=== PATIENT | female | born 1940 | race Caucasian/White ===

== ENCOUNTER 2016-11-19 10:07 | Inpatient (IN) ==
--- NOTE | 2016-11-19 10:17 | Emergency Department Note ---
Disposition Clinical Impression: Weakness, Elevated troponin A-fib Qualifiers: Atrial fibrillation type: unspecified Qualified Code(s): I48.91 - Unspecified atrial fibrillation Disposition: Admitted As Inpatient Condition: Fair Referrals: NO,PCP [Primary Care Provider] - Forms: ED Satisfaction Letter SOB HPI - General Chief Complaint: ED Shortness of Breath/Dyspnea Stated Complaint: SOB Time Seen by Provider: 11/19/16 10:11 Source: patient, EMS Mode of arrival: ambulatory Limitations: no limitations Nursing Notes Reviewed: Yes Vital Signs Reviewed: Yes - History of Present Illness 76 year old female history of hypertension, A. fib presents for evaluation via EMS for generalized weakness and shortness of breath. Patient states she has been feeling short of breath over the past week. No fevers. No cough. No significant pulmonary disease. No history of smoking. Patient states that she has also been having diffuse generalized pain. Pain in her chest as well as her legs. EMS report that she was unable to ambulate with assistance. Patient notes that she has had lower ext swelling which is unchanged from her baseline. Patient states that she has pain in her knees. States that she does not ambulate at baseline due to her swelling in her lower legs. Reports that she does live alone and has a son that lives near. Pt Subjective Complaint: shortness of breath Onset (ago): day(s) - Related Data Home Medications Medication Instructions Recorded Confirmed Gabapentin [Neurontin] 300 mg PO HS 03/23/16 06/26/16 Multivitamin [Multi-Day Vitamins] 1 each PO DAILY 03/23/16 06/26/16 Previous Rx's Medication Instructions Recorded TraMADol [Ultram] 50 mg PO Q6HR PRN #30 10/20/15 Atorvastatin [Lipitor] 40 mg PO HS #30 tablet 03/27/16 Dabigatran [Pradaxa] 75 mg PO BID #60 capsule 03/27/16 Albuterol Neb [Proventil Neb] 2.5 mg IH [id number] PRN 14 Days 07/03/16 Diltiazem CD (24hr) [Cardizem CD] 120 mg PO DAILY #30 cap.er.24h 07/03/16 Docusate [Colace] 100 mg PO BID #20 capsule 07/03/16 Furosemide [Lasix] 60 mg PO DAILY #30 tablet 07/03/16 Metoprolol [Lopressor] 50 mg PO BID #60 tablet 07/03/16 Allergies Allergy/AdvReac Type Severity Reaction Status Date / Time No Known Allergies Allergy Verified 11/19/16 10:08 All systems ED: reviewed and negative except as stated. Constitutional: Reports: as per HPI. Denies: fever Eyes: Reports: as per HPI ENT ED: Reports: as per HPI Cardiovascular: Reports: as per HPI, chest pain Respiratory: Reports: as per HPI, dyspnea Gastrointestinal: Reports: as per HPI, nausea Genitourinary: Reports: as per HPI Musculoskeletal: Reports: as per HPI Integumentary: Reports: as per HPI Neurological: Reports: as per HPI Psychiatric: Reports: as per HPI Endocrine: Reports: as per HPI Past Medical History - Past Medical History Medical history: Reports: atrial fibrillation, cardiomyopathy, CHF, DVT, hyperlipidemia, hypertension, venous stasis, valvular heart disease Surgical history: Reports: hysterectomy Psychiatric history: Reports: anxiety [employer] history: Reports: non-contributory - Social History Smoking Status: Never smoker Smokeless Tobacco Status: No Alcohol use: Reports: none Drug use: Reports: none Physical Exam - General Limitations: no limitations General appearance: alert - Head Head exam: atraumatic, normocephalic, normal inspection - Eye Eye exam: Present: normal appearance, PERRL, EOMI - ENT ENT exam: normal exam, mucous membranes moist - Neck Neck exam: Present: normal inspection, trachea midline - Chest Chest inspection: Present: normal inspection, symmetric chest wall rise - Respiratory Respiratory exam: Present: normal lung sounds bilaterally. Absent: respiratory distress - Cardiovascular Cardiovascular exam: Present: regular rate, normal rhythm - Abdominal Exam Abdominal exam: Present: soft, Non-Tender. Absent: guarding, rebound - Extremities Exam Extremities exam: Present: normal inspection, pedal edema (2-3 + pitting edema b /l with chronic overlying erythemic changes.) - Expanded Lower Extremity Exam Hip/Pelvis exam: Present: normal inspection Upper leg exam: Present: normal inspection - Back Exam Back exam: Present: normal inspection - Skin Skin exam: Present: warm, dry, intact, normal color Course Course Narrative: Patient seen and examined upon EMS arrival. EMS states the patient's living conditions are poor. There is no fluid in her house. Patient is not able to perform her activities of daily living. Patient notes that she has not been taking her medications over the past week. Has unable to get them filled. Patient's lungs are unremarkable. Patient will get chest x-ray, cardiac evaluation, basic lab work including a urine. Symptomatic treatment. Patient will likely need admission. - Reevaluation(s) Reevaluation #1: Patient seen and examined. Patient's heart rate has improved from initial evaluation. Patient notes pain in her knees. Time: 11:27 Vital Signs Temperature 98.1 F 11/19/16 10:09 Pulse Rate 127 11/19/16 10:09 Respiratory Rate 20 11/19/16 10:09 Blood Pressure 143/114 11/19/16 10:09 O2 Sat by Pulse Oximetry 93 11/19/16 10:09 Temperature 98.1 F 11/19/16 10:09 Pulse Rate 125 11/19/16 11:26 Respiratory Rate 20 11/19/16 11:26 Blood Pressure 146/111 11/19/16 11:26 O2 Sat by Pulse Oximetry 94 11/19/16 11:26 Oxygen Delivery Oxygen Delivery Nasal Cannula Shortness of Breath/Dyspnea - [facility] Narrative Medical decision making narrative: 76-year-old female presents from home for concerns of weakness, shortness of breath, pain. Patient states he has pain everywhere it is predominantly in her knees. Patient states that she has not been able to refill her medications. States that she has soreness of breath and weakness. Patient does not have a smoking or pulmonary history. Patient does have a cardiac history with chronic A. fib on Pradaxa. Upon arrival the patient was not hypoxic. The patient had pain in her knees no abdominal pain. Patient was treated symptomatically with Zofran and morphine. Patient's heart rate fluctuated with her A. fib into the 120s and 30s. Patient's blood pressure stable. Patient typically takes Cardizem as well as metoprolol. Patient has not been able to take her medications at home. Concern that the patient has not been able to care for herself at home. EMS reported she has poor living conditions and was not able to ambulate without assistance. Patient states that she has chronic lower leg swelling which is unchanged from her baseline. Patient's lab work reveals elevated troponin which is similar to prior evaluations. Patient's denying any current chest pain. Patient did receive an aspirin. Patient also received IV fluids as well as IV Lopressor. Patient will likely need placement and PT/OT evaluation. - Lab Data Lab results reviewed: Yes I reviewed the patient's lab results. Result diagrams: 11/19/16 10:50 11/19/16 10:50 Lab Results 11/19/16 11/19/16 11/19/16 Range/Units 10:50 10:50 10:50 WBC 6.2 (4.3-11.1) K/mcL RBC 3.60 L (3.82-4.97) M/mcL Hgb 11.9 (11.5-15.4) g/dL Hct 36.8 (35.3-44.9) % MCV 102.2 H (83.0-100.0) fL MCH 33.1 (28.0-33.3) pg MCHC 32.3 (31.6-35.5) g/dL RDW 15.0 H (11.5-14.5) % Plt Count 163 (140-400) K/mcL MPV 10.4 (9.4-12.4) fL Immature Gran % 0.3 (0-4) % Seg Neutrophils % 70.3 % Lymphocytes % 15.2 % Monocytes % 10.8 % Eosinophils % 2.9 % Basophils % 0.5 % Neutrophils # 4.3 (1.6-8.9) K/mcL Lymphocytes # 0.9 (0.6-4.6) K/mcL Monocytes # 0.7 (0.0-1.3) K/mcL Eosinophils # 0.2 (0.0-0.6) K/mcL Basophils # 0.0 (0.0-0.2) K/mcL PT 14.1 H (9.4-12.1) Seconds INR 1.3 Sodium 144 (136-145) mEq/L Potassium 3.1 L (3.5-4.5) mEq/L Chloride 112 H (98-109) mEq/L Carbon Dioxide 25 (19-29) mEq/L BUN 16 (7-20) mg/dL Creatinine 0.80 (0.57-1.11) mg/dL Est GFR ( Amer) > 60 (> 60) Est GFR (Non-Af Amer) > 60 (> 60) BUN/Creatinine Ratio 20 (6-26) Glucose 107 H (70-99) mg/dL Calculated Osmolality 300 (280-300) Calcium 8.7 (8.6-10.8) mg/dL Total Bilirubin 1.4 H (0.2-1.2) mg/dL Direct Bilirubin 0.6 H (0.0-0.5) mg/dL Indirect Bilirubin 0.8 (0.0-1.2) mg/dL AST 23 (5-34) Units/L ALT 18 (0-55) Units/L Alkaline Phosphatase 62 (38-126) Units/L Troponin I (0-0.03) ng/mL B-Natriuretic Peptide (0-100) pg/mL Serum Total Protein 6.4 (6.0-8.3) g/dL Albumin 3.1 L (3.5-5.0) g/dL Globulin 3.3 (2.4-3.5) g/dL Albumin/Globulin Ratio 0.9 L (1.1-2.2) Urine Color (Yellow) Urine Clarity (Clear) Urine pH (5.0-8.0) pH Units Ur Specific [place] (1.010-1.025) Urine Protein (Neg-Trace) mg/dL Urine Glucose (UA) (Normal) mg/dL Urine Ketones (Negative) mg/dL Urine Blood (Negative) Urine Nitrite (Negative) Urine Bilirubin (Negative) Urine Urobilinogen (Normal) mg/dL Ur Leukocyte Esterase (Negative) Urine Microscopic RBC (0-3) per hpf Urine Microscopic WBC (0-3) per hpf Ur Squamous Epith Cells (None-Few) per lpf Urine Bacteria (None-Few) per hpf Hyaline Casts (None-Few) per lpf 11/19/16 11/19/16 11/19/16 Range/Units 10:50 10:50 11:35 WBC (4.3-11.1) K/mcL RBC (3.82-4.97) M/mcL Hgb (11.5-15.4) g/dL Hct (35.3-44.9) % MCV (83.0-100.0) fL MCH (28.0-33.3) pg MCHC (31.6-35.5) g/dL RDW (11.5-14.5) % Plt Count (140-400) K/mcL MPV (9.4-12.4) fL Immature Gran % (0-4) % Seg Neutrophils % % Lymphocytes % % Monocytes % % Eosinophils % % Basophils % % Neutrophils # (1.6-8.9) K/mcL Lymphocytes # (0.6-4.6) K/mcL Monocytes # (0.0-1.3) K/mcL Eosinophils # (0.0-0.6) K/mcL Basophils # (0.0-0.2) K/mcL PT (9.4-12.1) Seconds INR Sodium (136-145) mEq/L Potassium (3.5-4.5) mEq/L Chloride (98-109) mEq/L Carbon Dioxide (19-29) mEq/L BUN (7-20) mg/dL Creatinine (0.57-1.11) mg/dL Est GFR ( Amer) (> 60) Est GFR (Non-Af Amer) (> 60) BUN/Creatinine Ratio (6-26) Glucose (70-99) mg/dL Calculated Osmolality (280-300) Calcium (8.6-10.8) mg/dL Total Bilirubin (0.2-1.2) mg/dL Direct Bilirubin (0.0-0.5) mg/dL Indirect Bilirubin (0.0-1.2) mg/dL AST (5-34) Units/L ALT (0-55) Units/L Alkaline Phosphatase (38-126) Units/L Troponin I 0.06 H* (0-0.03) ng/mL B-Natriuretic Peptide 350 H (0-100) pg/mL Serum Total Protein (6.0-8.3) g/dL Albumin (3.5-5.0) g/dL Globulin (2.4-3.5) g/dL Albumin/Globulin Ratio (1.1-2.2) Urine Color Dark Yellow (Yellow) Urine Clarity Cloudy A (Clear) Urine pH 5.5 (5.0-8.0) pH Units Ur Specific [place] 1.029 H (1.010-1.025) Urine Protein 100 H (Neg-Trace) mg/dL Urine Glucose (UA) Normal (Normal) mg/dL Urine Ketones Negative (Negative) mg/dL Urine Blood Negative (Negative) Urine Nitrite Negative (Negative) Urine Bilirubin Small H (Negative) Urine Urobilinogen Normal (Normal) mg/dL Ur Leukocyte Esterase Negative (Negative) Urine Microscopic RBC 0-3 (0-3) per hpf Urine Microscopic WBC 0-3 (0-3) per hpf Ur Squamous Epith Cells Many H (None-Few) per lpf Urine Bacteria None Seen (None-Few) per hpf Hyaline Casts Few (None-Few) per lpf - Radiology Data Radiology results reviewed: Yes I reviewed the patient's radiology results. Chest X-Ray 11/19/16 10:14 IMPRESSION: Mild bibasilar airspace disease. Small left pleural effusion versus scarring. D/ / Price Anderson MD / Price Anderson MD Interpreting Provider: Price Anderson MD - EKG Data EKG attestation: Yes I reviewed and interpreted this EKG. Rate: Reports: tachycardia Rhythm: Reports: A.Fib [place]/QRS: Reports: normal Q waves: Reports: v1 T wave inversions noted in: Reports: v5, v6 Interpretation: Reports: no acute changes, unchanged when compared to prior tracing (date) (06/2016), nonspecific ST-T wave changes S.B.A.R. - S.B.A.R. Situation: Demographics Background: Presenting Complaint Assessment: Vital Signs, Course and respsone to treatment, Patient/Family Expectation Recommendation: Barrier(s) to disposition, Recommendation based on pending studies, treatments, or consults S.B.A.R. Report Given to: Dr. Hebert S.B.AByronRByron Repor Time: 12:41 Attestation Statement - Attestation Attestation: I examined this patient and my medical decision-making was reviewed with the [employer]/PA/Advanced Practice Nurse/Resident Physician. I agree with the documented findings, disposition and treatment plan as described except to the extent set forth below.
[2016-11-19] MEDS ORDERED: 0.9 % Sodium Chloride 500 ML IVC ONE (11:04)
[2016-11-19 11:15] LABS: Basophils % 0.5 %; Eosinophils # 0.2 K/mcL (0.0-0.6); Eosinophils % 2.9 %; Hematocrit 36.8 % (35.3-44.9); Hemoglobin 11.9 g/dL (11.5-15.4); Immature Granulocytes % 0.3 % (0-4); Lymphocytes # 0.9 K/mcL (0.6-4.6); Lymphocytes % 15.2 %; Mean Corpuscular HGB Conc 32.3 g/dL (31.6-35.5); Mean Corpuscular Hemoglobin 33.1 pg (28.0-33.3); Mean Corpuscular Volume 102.2 fL (83.0-100.0); Mean Platelet Volume 10.4 fL (9.4-12.4); Monocytes # 0.7 K/mcL (0.0-1.3); Monocytes % 10.8 %; Neutrophils # 4.3 K/mcL (1.6-8.9); Platelet Count 163 K/mcL (140-400); Segmented Neutrophils % 70.3 %
[2016-11-19 11:20] LABS: INR 1.3; Prothrombin Time 14.1 Seconds (9.4-12.1)
[2016-11-19] MEDS ORDERED: Ondansetron 4 MG/2 ML VIAL IVP ONE (11:25)
[2016-11-19] MEDS ORDERED: *HR* Morphine 2 MG/ML SYRINGE IVP ONE (11:25)
[2016-11-19 11:29] LABS: Alanine Aminotransferase 18 Units/L (0-55); Albumin 3.1 g/dL (3.5-5.0); Albumin/Globulin Ratio 0.9 (1.1-2.2); Alkaline Phosphatase 62 Units/L (38-126); Aspartate Amino Transferase 23 Units/L (5-34); BUN/Creatinine Ratio 20 (6-26); Bilirubin,Direct 0.6 mg/dL (0.0-0.5); Bilirubin,Indirect 0.8 mg/dL (0.0-1.2); Bilirubin,Total 1.4 mg/dL (0.2-1.2); Blood Urea Nitrogen 16 mg/dL (7-20); Calcium 8.7 mg/dL (8.6-10.8); Carbon Dioxide 25 mEq/L (19-29); Chloride 112 mEq/L (98-109); Globulin 3.3 g/dL (2.4-3.5); Glucose 107 mg/dL (70-99); Osmolality,Calculated 300 (280-300); Potassium 3.1 mEq/L (3.5-4.5); Sodium 144 mEq/L (136-145); Total Protein 6.4 g/dL (6.0-8.3); eGFR For African Americans > 60 (> 60); eGFR For Non-African Americans > 60 (> 60)
[2016-11-19 12:12] LABS: Bilirubin,Urine Small (Negative); Blood,Urine Negative (Negative); Clarity,Urine Cloudy (Clear); Color,Urine Dark Yellow (Yellow); Glucose,Urine (UA) Normal (Normal); Ketones,Urine Negative (Negative); Leukocyte Esterase,Urine Negative (Negative); Nitrite,Urine Negative (Negative); PH,Urine 5.5 pH Units (5.0-8.0); Protein,Urine 100 mg/dL (Neg-Trace); Specific Gravity,Urine 1.029 (1.010-1.025); Urobilinogen,Urine Normal (Normal)
[2016-11-19 12:14] LABS: Bacteria,Urine None Seen per hpf (None-Few); Hyaline Casts,Urine Few per lpf (None-Few); RBC,Urine 0-3 per hpf (0-3); Squamous Epithelial Cell,Urine Many per lpf (None-Few); WBC,Urine 0-3 per hpf (0-3)
[2016-11-19] MEDS ORDERED: Aspirin 325 MG TABLET PO ONE (12:25)
[2016-11-19] MEDS ORDERED: *HR* Metoprolol 5 MG/5 ML VIAL IVP ONE (12:32)
[2016-11-19 12:50] LABS: Magnesium 1.6 mg/dL (1.6-2.6)
[2016-11-19] MEDS ORDERED: Naloxone 0.4 MG/ML INJ IVP PRN (13:47)
--- NOTE | 2016-11-19 13:47 | Internal Med History&Physical ---
Date of Encounter: 11/19/16 Time of Encounter: 13:46 Internal Medicine - H&P: HPI Chief complaint: generalized weakness Admitted From: Home Plans for Post Hospital Care: Home History of present illness: Ms. Cordova is a 76 year old female history of hypertension, A. fib presents for evaluation via EMS for generalized weakness and shortness of breath. Patient states she has been feeling short of breath over the past week. No fevers. No cough. No significant pulmonary disease. No history of smoking. Patient states that she has also been having diffuse generalized pain. Pain in her chest as well as her legs. EMS report that she was unable to ambulate with assistance. Patient notes that she has had lower ext swelling which is unchanged from her baseline. Patient states that she has pain in her knees. States that she does not ambulate at baseline due to her swelling in her lower legs. Reports that she does live alone and has a son that lives near. Past Med Surg Social Fam HX - Past Medical History Medical history: atrial fibrillation, cardiomyopathy, CHF, DVT, hyperlipidemia, hypertension, venous stasis, valvular heart disease Psychiatric history: anxiety - Past Surgical History Surgical History: hysterectomy - Social History Smoking Status: Never smoker Smokeless Tobacco Status: No Alcohol use: none Drug use: none - Family History Father Living Status: Hx Family Cardiac Disorders: Yes Mother Living Status: Hx Family Cardiac Disorders: Yes Internal Medicine - H&P: Meds TraMADol [Ultram] 50 mg PO Q6HR PRN #30 10/20/15 [Rx] Gabapentin [Neurontin] 300 mg PO HS 03/23/16 [History] Multivitamin [Multi-Day Vitamins] 1 each PO DAILY 03/23/16 [History] Atorvastatin [Lipitor] 40 mg PO HS #30 tablet 03/27/16 [Rx] Dabigatran [Pradaxa] 75 mg PO BID #60 capsule 03/27/16 [Rx] Albuterol Neb [Proventil Neb] 2.5 mg IH [id number] PRN 14 Days 07/03/16 [Rx] Diltiazem CD (24hr) [Cardizem CD] 120 mg PO DAILY #30 cap.er.24h 07/03/16 [Rx] Docusate [Colace] 100 mg PO BID #20 capsule 07/03/16 [Rx] Furosemide [Lasix] 60 mg PO DAILY #30 tablet 07/03/16 [Rx] Metoprolol [Lopressor] 50 mg PO BID #60 tablet 07/03/16 [Rx] Allergies No Known Allergies Allergy (Verified 11/19/16 10:08) All Systems PM: A 10-system review of systems was performed and is negative for pertinent findings except as documented above in the HPI. - Constitutional Vitals: Temp Pulse Resp BP Pulse Ox 98.1 F 128 18 142/109 99 11/19/16 10:09 11/19/16 12:43 11/19/16 13:30 11/19/16 13:30 11/19/16 12:43 General appearance: Present: A&O X 3, no acute distress Internal Med - H&P Results - Labs CBC & Chem 7: 11/19/16 10:50 11/19/16 10:50
--- NOTE | 2016-11-19 14:06 | Internal Med History&Physical ---
Date of Encounter: 11/19/16 Time of Encounter: 14:30 Assessment and Plan (1) Acute exacerbation of congestive heart failure Current visit: Yes Status: Acute Patient appears to be having an acute episode of congestive heart failure. Worsening pedal edema with shortness of breath or orthopnea and dyspnea on exertion. We will treat with IV Lasix. Monitor with telemetry. Trend troponins. Slight troponin elevation likely related to demand ischemia. Monitor vital signs closely. Monitor blood pressure closely. Daily weights. Input and output measurement. Most recent echocardiogram done in March 2016 showed EF of 45-50% with indeterminate diastolic function and moderate pulmonary hypertension. Patient has not been taking her medications appropriately. Will repeat echocardiogram. Qualifiers: Congestive heart failure type: systolic Qualified Code(s): I50.23 - Acute on chronic systolic (congestive) heart failure (2) A-fib Current visit: Yes Status: Acute Patient presented with A. fib with rapid ventricular response. This has since improved. Heart rate is now better controlled. Will resume home medications. Monitor heart rate to telemetry. On anticoagulation with pradaxa Qualifiers: Atrial fibrillation type: chronic Qualified Code(s): I48.2 - Chronic atrial fibrillation (3) Peripheral edema Current visit: No Status: Acute Due to congestive heart failure/venous stasis/right heart failure. We will treat with IV Lasix. (4) S/P aortic valve repair Current visit: Yes Status: Chronic (5) Physical deconditioning Current visit: Yes Status: Acute Will consult social media intern, PTOT. Patient may benefit from placement to skilled rehabilitation. Internal Medicine - H&P: HPI Chief complaint: Generalized weakness, body aches Admitted From: Emergency Dept Plans for Post Hospital Care: Transfer [facility] History of present illness: Ms. Cordova is a 76 year old female patient with history of atrial fibrillation , cardiomyopathy, congestive heart failure, the pain thrombosis, hyperlipidemia and hypertension presented to the ER with complaints of generalized weakness, generalized body aches. The patient states that she has not been able to take her medications for at least a week as she did not have the money to get them filled. She denies any chest pain. She does have shortness of breath with minimal exertion and some orthopnea. No PND. She has chronic pedal edema which seems to be worse. She lives alone at home. Reviewing the ED records appears that the patient has not been eating much for at least a week and failing to thrive at home. She has not been able to perform her activities of daily living and according to EMS records, her home living condition was poor. Patient currently denies any palpitations. Past Med Surg Social Fam HX - Past Medical History Attestation: Yes The following information was validated with the patient. Source: patient, old records reviewed Medical history: atrial fibrillation, cardiomyopathy, CHF, DVT, hyperlipidemia, hypertension, venous stasis, valvular heart disease Psychiatric history: anxiety - Past Surgical History Surgical History: hysterectomy - Social History Smoking Status: Never smoker Smokeless Tobacco Status: No Alcohol use: none Drug use: none - Family History Father Living Status: Hx Family Cardiac Disorders: Yes Mother Living Status: Hx Family Cardiac Disorders: Yes Internal Medicine - H&P: Meds TraMADol [Ultram] 50 mg PO Q6HR PRN #30 10/20/15 [Rx] Gabapentin [Neurontin] 300 mg PO HS 03/23/16 [History] Multivitamin [Multi-Day Vitamins] 1 each PO DAILY 03/23/16 [History] Atorvastatin [Lipitor] 40 mg PO HS #30 tablet 03/27/16 [Rx] Dabigatran [Pradaxa] 75 mg PO BID #60 capsule 03/27/16 [Rx] Albuterol Neb [Proventil Neb] 2.5 mg IH [id number] PRN 14 Days 07/03/16 [Rx] Diltiazem CD (24hr) [Cardizem CD] 120 mg PO DAILY #30 cap.er.24h 07/03/16 [Rx] Docusate [Colace] 100 mg PO BID #20 capsule 07/03/16 [Rx] Furosemide [Lasix] 60 mg PO DAILY #30 tablet 07/03/16 [Rx] Metoprolol [Lopressor] 50 mg PO BID #60 tablet 07/03/16 [Rx] Allergies No Known Allergies Allergy (Verified 11/19/16 10:08) All Systems PM: A 10-system review of systems was performed and is negative for pertinent findings except as documented above in the HPI. - Constitutional Constitutional: fatigue, malaise, no chills, no fever(s), no night sweats - EENT Eyes: no change in vision, no discharge, no pain, no photophobia Ears: no ear discharge, no ear pain, no tinnitus Nose, mouth and throat: no dysphagia, no nasal discharge, no neck pain, no sore throat - Cardiovascular Cardiovascular ROS IM: dyspnea, dyspnea on exertion, edema, orthopnea, no chest pain, no diaphoresis, no lightheadedness, no palpitations, no syncope - Respiratory Respiratory: no cough, no dyspnea, no wheezing, no excessive phlegm production - Gastrointestinal Gastrointestinal: no abdominal pain, no diarrhea, no hematemesis, no hematochezia, no melena, no nausea, no vomiting - Genitourinary Genitourinary: no change in urinary stream, no dysuria, no flank pain, no hematuria - Musculoskeletal Musculoskeletal ROS IM: no numbness, no tingling - Integumentary Integumentary IM: no rash, no unusual bruising - Neurological Neurological ROS: no confusion, no convulsions, no focal weakness, no numbness, no tingling, no tremor(s) - Hematologic/Lymphatic Hematologic/Lymphatic: no easy bruising - Constitutional Vitals: Temp Pulse Resp BP Pulse Ox 98.1 F 128 18 142/109 99 11/19/16 10:09 11/19/16 12:43 11/19/16 13:30 11/19/16 13:30 11/19/16 12:43 General appearance: Present: mild distress, A&O X 3, no acute distress, answers questions appropriately - Cardiovascular Cardiovascular exam: Present: irregular rhythm, +S1, +S2, systolic murmur. Absent: diastolic murmur, gallop, rubs - GI/Abdominal GI/Abdominal exam: Present: normal bowel sounds, soft, no peritoneal signs. Absent: distended, tenderness - Extremities Exam Extremities exam: Present: pedal edema, warm, radial pulses palpable and symetrical. Absent: calf tenderness, cyanotic Additional comments: Bilateral venous stasis dermatitis changes in lower extremities - Neurological Exam Neurological exam: Present: CN II-XII intact, oriented X3, no focal deficits, strengths equal and symetr throughout. Absent: facial droop, speech deficit - Skin Skin exam: Present: dry, intact Internal Med - H&P Results - Labs CBC & Chem 7: 11/19/16 10:50 11/19/16 10:50 - EKG Data -: EKG Interpreted by Myself - EKG Data EKG comments: 04/16/17 14:50 EKG shows A. fib with rapid ventricular response - Impressions Impressions Chest X-Ray 11/19/16 10:14 IMPRESSION: Mild bibasilar airspace disease. Small left pleural effusion versus scarring. D/ / Price Anderson MD / Price Anderson MD Interpreting Provider: Price Anderson MD - Attending Attestation This document has been at least partially created by [employer] recognition technology by Dr. New. Errors in grammar, wording or other phrases may exist. If errors are found after the documentation is signed, they will be addressed individually in the addendum section of this document when appropriate.
[2016-11-19] MEDS ORDERED: Furosemide 40 MG/4 ML VIAL IVP ONE (14:32)
[2016-11-19] MEDS: Diltiazem CD (24hr) 120 MG CAPSULE PO SCH (14:40)
[2016-11-19] MEDS: *HR* Dabigatran 75 MG CAPSULE PO SCH (20:40)
[2016-11-20 01:02] LABS: Basophils # 0.1 K/mcL (0.0-0.2); Eosinophils # 0.3 K/mcL (0.0-0.6); Hematocrit 35.7 % (35.3-44.9); Hemoglobin 11.6 g/dL (11.5-15.4); Immature Granulocytes % 0.2 % (0-4); Lymphocytes # 1.6 K/mcL (0.6-4.6); Mean Corpuscular HGB Conc 32.5 g/dL (31.6-35.5); Mean Corpuscular Hemoglobin 33.6 pg (28.0-33.3); Mean Corpuscular Volume 103.5 fL (83.0-100.0); Mean Platelet Volume 10.3 fL (9.4-12.4); Monocytes # 0.8 K/mcL (0.0-1.3); Monocytes % 13.3 %; Platelet Count 164 K/mcL (140-400); Red Blood Count 3.45 M/mcL (3.82-4.97); Red Cell Distribution Width 15.1 % (11.5-14.5); Segmented Neutrophils % 52.5 %
[2016-11-20 01:11] LABS: Hemoglobin A1C 5.5 %
[2016-11-20 01:16] LABS: BUN/Creatinine Ratio 16 (6-26); Blood Urea Nitrogen 16 mg/dL (7-20); Carbon Dioxide 22 mEq/L (19-29); Chloride 111 mEq/L (98-109); Glucose 136 mg/dL (70-99); Magnesium 1.7 mg/dL (1.6-2.6); Osmolality,Calculated 295 (280-300); Phosphorous 4.2 mg/dL (2.3-4.7); Potassium 3.9 mEq/L (3.5-4.5); Sodium 141 mEq/L (136-145); eGFR For African Americans > 60 (> 60); eGFR For Non-African Americans 54 (> 60)
[2016-11-20 01:17] LABS: Chol/HDL Ratio 3.2 (0-4.9)
[2016-11-20] MEDS: Diltiazem CD (24hr) 120 MG CAPSULE PO SCH (07:22)
[2016-11-20] MEDS: *HR* Dabigatran 75 MG CAPSULE PO SCH ×2 (07:40→20:12)
--- NOTE | 2016-11-20 10:23 | Cardiology Consult Note ---
Date of Encounter: 11/20/16 Time of Encounter: 09:45 Assessment and Plan (1) Acute on chronic systolic congestive heart failure, NYHA class 3 Current Visit: Yes Status: Acute Per cardiology: -Known CHF, 03/2016 LVEF 45-50%. -Previously on lasix at home, however out of medications for 1 week due to financial constraints. -3+ bilateral pitting pedal edema. -Worsening shortness of breath. Not on O2 at home, however requiring 2LPM per nasal cannula this admission. -Admits to not following fluid restriction and sodium restriction. -Was given lasix IV 40mg x1 dose yesterday. -Currently net negative 1000ml -Weight July at cardiology office 162lbs, current weight 160 pounds. -On beta kodi. Of note, unable to add lea inhibitor due to most recent BPs 90 -110s systolic. -Chest x-ray with small left pleural effusion. -History of aortic stenosis, s/p TAVR January 2016 at [facility]. -Echo 03/2016 with LVEF 45-50%, low normal/mildly reduced global left ventricular function, mild concentric left ventricular hypertrophy, indeterminate diastolic function, mildly dilated right ventricle with hypokinesis, severly biatrial enlargement, prior TAVR appears well seated, but leaflets are not well visualized, trace aortic regurgitation, moderate mitral regurgitation, severe tricuspid regurgitation, moderate pulmonary hypertension, All sauceda hypokinetic. -Echo 11/20/16 with LVEF 35-40%, indeterminate left ventricular diastolic function, RV is moderately dilated with mild to moderate reduction in function, flattening of septum during diastole suggesting RV volume overload, severe biatrial enlargement, moderate mitral regurgitation, moderate-severe tricuspid regurgitation, mild pulmonic regurgitation, no pulmonary hypertension, trivial pericardial effusion, ascites, all sauceda hypokinetic. -Will start lasix 40mg IV BID. Of note, renal function normal. -Will start strict I/Os, daily weights. -Will add bilateral knee high MARJ hose. -Close observation of renal function. -Will attempt to add lea inhibitor when BP will allow. -CHF education reinforced. -Will discuss with regarding further reduced EF and echo results. (2) A-fib Current Visit: Yes Status: Chronic Per cardiology: -KNown history of a.fib. -ON cardizem, beta kodi, and pradaxa. -ADmits to missing doses of pradaxa due ot financial constraints. -ECG with atrial fibrillation, HR 116. -Telemetry with atrial fibrillation average HR 73 previous 12 houers. -[id number] score 7 (age, gender, CHF, HTN, thromboembolism history. Education patient that she is at increased risk of stroke due to missed doses of pradaxa. Patient states understanding. MEdication compliance stressed to patient. -Can consider coumadin due to financial concerns. Will discuss with patient. -Will continue to monitor. Qualifiers: Atrial fibrillation type: chronic Qualified Code(s): I48.2 - Chronic atrial fibrillation (3) Elevated troponin Current Visit: No Status: Acute Per cardiology: -Troponins 0.06, 0.08, 0.12. Troponins flat and adynamic. -Elevated troponin in the setting of hypertension, CHF, and atrial fibrillation with RVR. -BPs 140s sytolic and 110s diastolic on admission. HR 115 on admission. -Patient denies chest pain. -ON beta kodi, CCB, statin. -Cath 10/18/15 coronary arteries angiographically normal. -Echo 11/20/16 with LVEF 35-40%, indeterminate left ventricular diastolic function, RV is moderately dilated with mild to moderate reduction in function, flattening of septum during diastole suggesting RV volume overload, severe biatrial enlargement, moderate mitral regurgitation, moderate-severe tricuspid regurgitation, mild pulmonic regurgitation, no pulmonary hypertension, trivial pericardial effusion, ascites, all sauceda hypokinetic. -Will obtain one more troponin. -Will discuss with regarding reduced LVEF. -Do not suspect NSTEMI, suspect demand ischemia. NO cardiac rehab warranted at this time. (4) Hypertension Current Visit: No Status: Chronic Per cardiology: -Hypertensive on admission BP 140/110. -BPs currently 90-110s systolic, -On CCB and BB. -Will continue to monitor. Qualifiers: Hypertension type: essential hypertension Qualified Code(s): I10 - Essential (primary) hypertension Discussion w patient/family: The assessment and plan as outlined above was discussed with the patient who expressed understanding and agreement. All questions were answered. Thank you for involving us in the care of your patient. Please call with any questions. Patient was discussed and reviewed with . History of Present Illness Consult date: 11/20/16 Requesting physician: Shashi New Consult reason: CHF, slight troponin elevation Chief complaint: shortness of breath History of present illness: Ms. Tasha is a 76 year old female with a relevant past medical history of hyperlipidemia, HTN, aortic stenosis s/p TAVR January 2016, venous insufficiency, DVT, anxiety, mitral valve prolapse, CHF, atrial fibrillation. Patient states she has been out of some of her medications at home. Patient states she could not afford to get medications filled. Patient states over the past week she has noticed increased peripheral edema and increased shortness of breath. Patient was admitted to [facility] and cardiology was consulted for CHF and elevated troponin. Patient denies chest pain, admits to whole body aching. Patient admits to increased shortness of breath and increased peripheral edema. Patient denies fluttering/palpitations. Past Med Surg Social Fam HX - Past Medical History Attestation: Yes The following information was validated with the patient. Source: patient, old records reviewed Medical history: atrial fibrillation, cardiomyopathy, CHF, DVT, hyperlipidemia, hypertension, venous stasis, valvular heart disease Psychiatric history: anxiety - Past Surgical History Surgical History: hysterectomy - Social History Smoking Status: Never smoker Smokeless Tobacco Status: No Alcohol use: none Drug use: none - Family History Father History Unknown: Yes Living Status: Hx Family Cardiac Disorders: Yes Mother History Unknown: Yes Living Status: Hx Family Cardiac Disorders: Yes Medications and Allergies TraMADol [Ultram] 50 mg PO Q6HR PRN #30 10/20/15 [Rx] Gabapentin [Neurontin] 300 mg PO HS 03/23/16 [History] Multivitamin [Multi-Day Vitamins] 1 each PO DAILY 03/23/16 [History] Atorvastatin [Lipitor] 40 mg PO HS #30 tablet 03/27/16 [Rx] Dabigatran [Pradaxa] 75 mg PO BID #60 capsule 03/27/16 [Rx] Albuterol Neb [Proventil Neb] 2.5 mg IH [id number] PRN 14 Days 07/03/16 [Rx] Diltiazem CD (24hr) [Cardizem CD] 120 mg PO DAILY #30 cap.er.24h 07/03/16 [Rx] Docusate [Colace] 100 mg PO BID #20 capsule 07/03/16 [Rx] Furosemide [Lasix] 60 mg PO DAILY #30 tablet 07/03/16 [Rx] Metoprolol [Lopressor] 50 mg PO BID #60 tablet 07/03/16 [Rx] Allergies No Known Allergies Allergy (Verified 11/19/16 10:08) All Systems Review: A 10-system review of systems was performed and is negative for pertinent findings except as documented above in the HPI. - Cardiovascular Cardiovascular: as per HPI, dyspnea at rest, dyspnea on exertion, leg edema Physical Examination Vital Signs, Last 4 Hours Temp Pulse Resp BP Pulse Ox 11/20/16 07:30 99 11/20/16 07:07 97.5 F L 56 18 95/62 99 General: Conversant, No Apparent Distress HEENT: Atraumatic, Normocephaly, Mucus Membranes Moist Neck: No JVD, Normal carotid pulses Cardiac: No Murmur, Other (Irregularly, irregular) Lungs: Other (Bilateral lower lobes with diminished breath sounds. ) Neuro: Alert and responsive, No focal deficits noted Abdomen: Soft, Non-Tender Skin: No rashes noted on visualized skin Musculoskeletal: No Chest Wall Tenderness Extremities: No Clubbing, No Cyanosis, Other (3+ bilateral lower extremity pitting edema. Pulses per doppler. ) Results 11/20/16 00:38 11/20/16 00:38 Lab Results Impressions Chest X-Ray 11/19/16 10:14 IMPRESSION: Mild bibasilar airspace disease. Small left pleural effusion versus scarring. D/ / Price Anderson MD / Price Anderson MD Interpreting Provider: Price Anderson MD Active Medications Dabigatran (Pradaxa) 75 mg PO BID [facility] Stop: 05/21/17 21:01 Last Admin: 11/20/16 07:40 Dose: 75 mg Diltiazem HCl (Cardizem Cd) 120 mg PO DAILY [facility] Stop: 05/21/17 14:01 Last Admin: 11/20/16 07:22 Dose: Not Given Docusate Sodium (Colace) 100 mg PO BID [facility] PRN Reason: Protocol Stop: 05/21/17 21:01 Last Admin: 11/20/16 07:40 Dose: 100 mg Metoprolol Tartrate (Lopressor) 50 mg PO BID [facility] Stop: 05/21/17 21:01 Last Admin: 11/20/16 07:23 Dose: Not Given Naloxone HCl (Narcan) 0.4 mg IVP Q2MIN PRN PRN Reason: Opioid Reversal Stop: 05/21/17 13:48 Simvastatin (Zocor) 40 mg PO HS KYLE Stop: 05/21/17 21:01 Last Admin: 11/19/16 20:40 Dose: 40 mg Laboratory Tests 03/23/16 03/24/16 11/19/16 14:04 04:10 10:50 Hgb 11.9 Potassium Creatinine Troponin I 0.17 H* 0.15 H* B-Natriuretic Peptide Triglycerides Cholesterol LDL Cholesterol, Calc VLDL Cholesterol, Calc HDL Cholesterol 11/19/16 11/19/16 11/19/16 10:50 10:50 10:50 Hgb Potassium 3.1 L Creatinine 0.80 Troponin I 0.06 H* B-Natriuretic Peptide 350 H Triglycerides Cholesterol LDL Cholesterol, Calc VLDL Cholesterol, Calc HDL Cholesterol 11/19/16 11/20/16 11/20/16 17:30 00:38 00:38 Hgb 11.6 Potassium Creatinine Troponin I 0.08 H* 0.12 H* B-Natriuretic Peptide Triglycerides Cholesterol LDL Cholesterol, Calc VLDL Cholesterol, Calc HDL Cholesterol 11/20/16 11/20/16 00:38 00:38 Hgb Potassium 3.9 Creatinine 1.00 Troponin I B-Natriuretic Peptide Triglycerides 54 Cholesterol 126 LDL Cholesterol, Calc 75 VLDL Cholesterol, Calc 11 HDL Cholesterol 40 - Imaging and Cardiology Chest Xray: report reviewed Echo: pending, report reviewed Cardiac cath: report reviewed - EKG Interpretation EKG results cardiology: personally reviewed (ECG 11/19/16 with atrial fibrillatiom RVR, HR 116.), other (Telemetry reviewed with average HR previous 12 hours noted to be 73, atrial fibrillation. PVCs noted, one triplet PVC noted. ) Consult Discharge Plan - Plan Referrals: Dulce Galdamez, FLEXIBLE MACHINING SYSTEM MACHINIST [Advanced Practice Nurse] - 11/28/16 11:00 am (Please follow up as schedule...)
--- NOTE | 2016-11-20 10:23 | ECHO - Doppler Report ---
Echocardiogram Name: Inocencia Cordova Date of Study: 11/20/2016 Date: 1940 Ht: 66.0 in Medical Record#: [id number] Age: 76 Wt: 160.0 lb Gender: Female BSA: 1.82 Order #: [id number] Location: [facility] Room #: 2A43 Reading Physician: Esme Howe DO Pigs Feet Finisher: Fritz Griffin RN Ordering Physician: Shashi New MD Primary Physician: None Indications: Congestive heart failure Impressions: LVEF 35-40%. Indeterminate left ventricular diastolic function RV is moderately dilated with mild to moderate reduction in function. Flattening of the septum during diastole suggesting RV volume overload. Severe bi-atrial enlargement. Moderate mitral regurgitation. Moderate-severe tricuspid regurgitation. Mild pulmonic regurgitation. No pulmonary hypertension by TR gradient although Doppler estimation may be suboptimal. IVC is not dilated. Trivial pericardial effusion. Ascites. Left Ventricular Wall Motion: Rest Echo Findings The apex, apical inferior, mid inferior, basal inferior, apical anterior, mid anterior, basal anterior, apical septal, mid inferior septal, basal inferior septal, apical lateral, mid anterior lateral, basal anterior lateral, mid anterior septal, mid inferior lateral, basal anterior septal and basal inferior lateral sauceda were hypokinetic. Findings: Study Quality * Technically adequate exam. ECG Findings * Atrial fibrillation. Left Ventricle * Mild concentric left ventricular hypertrophy. * LVEF 35-40%. * Normal LV size. Mitral Valve * Mildly thickened mitral valve leaflets. * Mild to moderate mitral annular calcification * No mitral stenosis. * Moderate mitral regurgitation. Aortic Valve * No aortic regurgitation. * Prosthetic aortic valve not well visualized. * No aortic stenosis. Tricuspid Valve * Normal tricuspid valve structure. Probable poor coaptation of the septal leaflets. * Moderate-severe tricuspid regurgitation. * No pulmonary hypertension. * Estimated RA pressure is 8 mmHg. * Estimated RVSP is 34 mmHg. Pulmonic Valve * Pulmonic valve is not well visualized. * No pulmonic stenosis. * Mild pulmonic regurgitation. Pulmonary Artery * Pulmonary artery not well visualized. Right Atrium * Severely dilated right atrium. Right Ventricle * RV is moderately dilated with mild to moderate reduction in function. Lat S Ronnell 7cm/s. Left Atrium * Severely dilated left atrium. Interatrial Septum * No evidence of PFO by color Doppler. IVC * Normal IVC dimensions and inspiratory collapse. Aorta * Normally sized aortic root. Pericardium * There is a trivial pericardial effusion present. No tamponade. History Hypertension Hypercholesteremia Family History of CAD Congestive Heart Failure Valvular Disease Valve Replacement AV Prosthesis Biologic 03/24/2016 a Previous Echo was performed. Measurements: BP: 95/ 62 2D Normal Values IVSd: 1.40 cm 0.6 - 1.0 cm LVIDd: 3.90 cm 3.7 - 5.6 cm LVPWd: 1.40 cm 0.6 - 1.1 cm LVIDs: 3.30 cm 1.5 - 3.6 cm LA: 4.80 cm 2.0 - 4.0cm %FS: 15.40 cm >25 % LVOT Diam: 1.80 cm LA volume: 111 Mitral Valve Peak E:1.12 m/sec Peak E' Lat Ronnell:9.26 cm/s Peak E' Med Ronnell:4.78 cm/s E/E' Lat Ratio:12.1 E/E' Med Ratio:23.4 LVOT Peak Ronnell:1.60 m/sec Mean Ronnell:1.16 m/sec Peak Grad:10.00 mmHg Mean Grad:6.00 mmHg Aortic Valve Peak Ronnell:2.81 m/sec Mean Ronnell:1.84 m/sec Peak Grad:32.00 mmHg Mean Grad:15.00 mmHg Valve Area:1.44 cm2 Tricuspid Valve TV Regurg Peak Grad: 26.00mmHg TV Regurg Peak Ronnell: 2.53m/sec Updated by Esme Howe on 11/20/2016 10:09:02 AM electronically signed on 11/20/2016 10:19:25 AM with status of Final Wall Motion Boss: 1=Normal, 2=Hypokinesis, 3=Akinesis, 4=Dyskinesis, 5=Aneurysmal, 6=Hyperkinetic, X=Not Visualized (Blank)=Missing
[2016-11-20] MEDS: Furosemide 40 MG/4 ML VIAL IVP SCH ×2 (12:03→17:15)
--- NOTE | 2016-11-20 12:05 | Internal Med Progress Note ---
Date of Encounter: 11/20/16 Time of Encounter: 12:03 - Assessment and plan (1) Acute exacerbation of congestive heart failure Current Visit: Yes Status: Acute Assessment and plan: Continue Lasix intravenously. Cardiology consult in progress. Will follow recommendations. Improving overall. 2-D echocardiogram done. We will follow results. Moderate risk for complications. Follow renal function closely. Qualifiers: Congestive heart failure type: systolic Qualified Code(s): I50.23 - Acute on chronic systolic (congestive) heart failure (2) A-fib Current Visit: Yes Status: Chronic Assessment and plan: Rate controlled. Patient has been bradycardic today. We will hold metoprolol and Cardizem for now. Qualifiers: Atrial fibrillation type: chronic Qualified Code(s): I48.2 - Chronic atrial fibrillation (3) Peripheral edema Current Visit: Yes Status: Acute Assessment and plan: Improving with IV Lasix. Will continue (4) S/P aortic valve repair Current Visit: Yes Status: Chronic Assessment and plan: On anticoagulation with Pradaxa (5) Physical deconditioning Current Visit: Yes Status: Acute Assessment and plan: Physical therapy and outpatient therapy are evaluating patient. sheet metal worker apprentice has also been consulted - Subjective Interval history: Recent is feeling slightly better today. Complaints of shortness of breath. Lower extremity edema slightly improved. Patient is having better urine output. Generalized body pains. No palpitations. - Constitutional Vitals: Temp Pulse Resp BP Pulse Ox 97.3 F L 52 18 109/72 99 11/20/16 11:11 11/20/16 11:11 11/20/16 11:11 11/20/16 11:11 11/20/16 11:11 General appearance: Present: mild distress, A&O X 3, no acute distress, answers questions appropriately - Respiratory Respiratory exam: Present: CTAB. Absent: accessory muscle use, rales, rhonchi, wheezes Additional comments: Basal crackles - Cardiovascular Cardiovascular exam: Present: RRR, +S1, +S2. Absent: diastolic murmur, gallop, rubs, systolic murmur - GI/Abdominal GI/Abdominal exam: Present: normal bowel sounds, soft, no peritoneal signs. Absent: distended, tenderness - Extremities Exam Extremities exam: Present: pedal edema (Bilateral pedal edema slightly improved) , warm, radial pulses palpable and symetrical. Absent: calf tenderness, cyanotic - Neurological Exam Neurological exam: Present: alert, oriented X3, no focal deficits. Absent: facial droop, speech deficit - Skin Skin exam: Present: dry, intact Internal Medicine: Result - Labs CBC & Chem 7: 11/20/16 00:38 11/20/16 00:38 Labs: Short CBC 11/20/16 Range/Units 00:38 WBC 5.8 (4.3-11.1) K/mcL Hgb 11.6 (11.5-15.4) g/dL Hct 35.7 (35.3-44.9) % Plt Count 164 (140-400) K/mcL Neutrophils # 3.0 (1.6-8.9) K/mcL BMP 11/20/16 00:38 Sodium 141 Potassium 3.9 Chloride 111 H Carbon Dioxide 22 BUN 16 Creatinine 1.00 Glucose 136 H Calcium 8.0 L Cardiac Enzymes 11/19/16 11/20/16 Range/Units 17:30 00:38 Troponin I 0.08 H* 0.12 H* (0-0.03) ng/mL - ABG Interpretation ABG results: PT/INR, D-dimer PT 14.1 Seconds (9.4-12.1) H 11/19/16 10:50 Consult Discharge Plan - Plan Referrals: Dulce Galdamez, MARBLE INSTALLER SUPERVISOR [Advanced Practice Nurse] - 11/28/16 11:00 am (Please follow up as schedule...) - Attending Attestation This document has been at least partially created by [employer] recognition technology by Dr. New. Errors in grammar, wording or other phrases may exist. If errors are found after the documentation is signed, they will be addressed individually in the addendum section of this document when appropriate.
[2016-11-21 05:00] LABS: Calcium 8.4 mg/dL (8.6-10.8); Magnesium 1.6 mg/dL (1.6-2.6); Potassium 4.4 mEq/L (3.5-4.5)
--- NOTE | 2016-11-21 06:10 | Electrocardiograph Report ---
[place] [id number] Test Date: 2016-11-19 Pat Name: Inocencia Cordova Department: 103 Room: 2A43 Gender: F Farm Service Consultant: MARICHUY : 1940 Requested By: Saurabh Chamberlain Order Number: [id number] Reading MD: Oz Frederick MD Measurements Intervals [place] Rate: 116 P: FL: 0 QRS: 91 QRSD: 109 T: 216 QT: 303 QTc: 372 Interpretive Statements ATRIAL FIBRILLATION WITH RAPID VENTRICULAR RESPONSE BORDERLINE RIGHT AXIS DEVIATION Electronically Signed On 11-21-2016 6:09:21 EDT by Oz Frederick MD
[2016-11-21] MEDS: Furosemide 40 MG/4 ML VIAL IVP SCH (09:21)
[2016-11-21] MEDS: Diltiazem CD (24hr) 120 MG CAPSULE PO SCH (09:22)
[2016-11-21] MEDS: *HR* Dabigatran 75 MG CAPSULE PO SCH ×2 (09:23→21:56)
--- NOTE | 2016-11-21 10:16 | Cardiology Progress Note ---
Date of Encounter: 11/21/16 Time of Encounter: 10:14 Assessment and Plan (1) Acute on chronic systolic congestive heart failure, NYHA class 3 Current Visit: Yes Status: Acute Per cardiology: Was on lasix at home, ran out 1 week due to financial constraints. 3+ BLE edema. Was not following fluid and NA restriction at home. CXR with small left pleural effusion. Was on IV Lasix 40mg BID, but currently on hold due to worsening renal function- -creatinine 1.00 yesterday, 1.67 today. Net negative 3830ml. Continue BB, no CHUCKY-I currently due to BILL. Echo 03/2016 with LVEF 45-50%. Current echo 11/20/16 LVEF 35-40%, RV is moderately dilated with mild to moderate reduction in function, flattening of septum during diastole suggesting RV volume overload, severe biatrial enlargement, moderate MR, moderate-severe TR, mild DC, trivial pericardial effusion, ascites, all sauceda hypokinetic. Pt had LHC 10/18/15 that showed angiographically normal coronaries. No repeat ischemic evaluation is warranted. Repeat echo in 1 month. Recommend Strict I/Os, daily weights, Na and fluid restriction. Recommend MARJ hose. Continue to follow. (2) Elevated troponin Current Visit: Yes Status: Acute Per cardiology: Troponins 0.06, 0.08, 0.12. Troponins flat and adynamic in the setting of hypertension, CHF, and atrial fibrillation with RVR. Likely demand ischemic, nondiagnostic for ACS. LHC 10/18/15 coronary arteries angiographically normal. Echo 11/20/16 EF 35-40%, previously 45-50%. Suspect tachycardia induced since recent ischemic eval showed normal cors. (3) A-fib Current Visit: Yes Status: Chronic Per cardiology: Known hx of A-Fib. On cardizem and BB for rate control. 24 hour tele AVG HR 77. Anticoagulated on Pradaxa. Missed doses due to financial constraints. Upon further questioning, she states the esposito was high because the pharmacy was trying to give her a 90 day supply. She states it is $30 for 1 month supply, which is affordable for her. States Coumadin is not an option due to not having a ride to check INRs. -[id number] score 7 (age, gender, CHF, HTN, thromboembolism hx). Continue Pradaxa for now. Creatinine Clearance 32. Pradaxa will need to be held if renal function worsens/creatinine clearance <30. Qualifiers: Atrial fibrillation type: chronic Qualified Code(s): I48.2 - Chronic atrial fibrillation (4) S/P TAVR (transcatheter aortic valve replacement) Current Visit: Yes Status: Chronic S/P TAVR in 2016 at [facility]. Current echo AV not well visualized, but no evidence of or AR. (5) Cardiomyopathy Current Visit: Yes Status: Acute Prior EF 45-50%, now 35-40%. Likely NICMP given that she had normal coronaries on [facility] 10/2015. Suspect tachycardia induced. Rate now well controlled. Recommend rechecking echo in 1 month to re-evaluate EF. Continue BB. No CHUCKY-I currently due to renal function. Qualifiers: Cardiomyopathy type: unspecified Qualified Code(s): I42.9 - Cardiomyopathy , unspecified Discussion w patient/family: The assessment and plan as outlined above was discussed with the patient and/or family members who expressed understanding and agreement. All questions were answered. Thank you for involving us in the care of your patient. Please call with any questions. I will discuss all the above with Dr. Frederick and make changes as necessary. Subjective Principal diagnosis: CHF Interval history: Cumulative I/O net negative -3830mL. Pt reports breathing has improved, but no significant improvement in lower extremity edema. Denies chest pain. Renal function has worsened--creatinine was 1.00 yesterday, 1.67 today. Objective Vital Signs, Last 4 Hours Temp Pulse Resp BP Pulse Ox 11/21/16 07:48 98.0 F 78 17 125/85 97 Vital Signs Temp Pulse Resp BP Pulse Ox 11/21/16 07:48 98.0 F 78 17 125/85 97 11/21/16 03:48 98 F 84 18 126/84 96 11/21/16 00:34 98.3 F 76 20 106/69 95 11/20/16 20:02 98.1 F 99 18 113/79 99 11/20/16 18:09 106/68 11/20/16 17:10 98.8 F 82 18 174/67 96 11/20/16 11:11 97.3 F L 52 18 109/72 99 Intake and Output 11/20/16 11/21/16 11/21/16 23:59 07:59 15:59 Intake Total 120 / 120 400 / 400 Output Total 2149 1500 / 1500 Balance -2029 / -2029 -1100 / -1100 Intake: Oral 120 / 120 400 / 400 Output: Urine 0 / 0 1500 / 1500 Catheter 2149 Other: Meal Dinner Percent of Meal Consumed 100% Stool Size Moderate Stool Consistency formed Stool Color Brown # Bowel Movements 1 Blood Glucose* 97 146 General: Conversant, No Apparent Distress HEENT: Atraumatic, Normocephaly, Mucus Membranes Moist Neck: Normal carotid pulses Cardiac: Other (irregularly irregular) Lungs: Other (diminished ) Neuro: Alert and responsive, No focal deficits noted Abdomen: Soft, Non-Tender Skin: No rashes noted on visualized skin Musculoskeletal: No Chest Wall Tenderness Extremities: Other (3+ BLE edema.) Results 11/20/16 00:38 11/21/16 04:22 Lab Results 11/20/16 11/21/16 13:41 04:22 Sodium 138 Potassium 4.4 Chloride 106 Carbon Dioxide 25 BUN 26 H D Creatinine 1.67 H D Glucose 110 H Calcium 8.4 L Magnesium 1.6 Troponin I 0.12 H* BMP 11/21/16 Range/Units 04:22 Sodium 138 (136-145) mEq/L Potassium 4.4 (3.5-4.5) mEq/L Chloride 106 (98-109) mEq/L Carbon Dioxide 25 (19-29) mEq/L BUN 26 H D (7-20) mg/dL Creatinine 1.67 H D (0.57-1.11) mg/dL Glucose 110 H (70-99) mg/dL Calcium 8.4 L (8.6-10.8) mg/dL Cardiac Enzymes 11/20/16 Range/Units 13:41 Troponin I 0.12 H* (0-0.03) ng/mL Impressions Chest CTA 11/20/16 12:37 IMPRESSION: No evidence of pulmonary embolism. Moderate right and small left-sided pleural effusions, similar to prior. Irregular areas of opacity throughout the right lung and within the lingula as well as some septal thickening. Findings may be related to edema and/or scarring. Mild superimposed pneumonia not excluded. Mild cardiomegaly with reflux of contrast into the hepatic veins which can be associated with right heart failure. There is mild stranding in the left upper quadrant, likely related to mesenteric edema and given the bone body wall edema. D/ / Darling Wolff MD / Darling Wolff MD Interpreting Provider: Darling Wolff MD Active Medications Dabigatran (Pradaxa) 75 mg PO BID [facility] Stop: 05/21/17 21:01 Last Admin: 11/21/16 09:23 Dose: 75 mg Diltiazem HCl (Cardizem Cd) 120 mg PO DAILY [facility] Stop: 05/21/17 14:01 Last Admin: 11/21/16 09:22 Dose: 120 mg Docusate Sodium (Colace) 100 mg PO BID [facility] PRN Reason: Protocol Stop: 05/21/17 21:01 Last Admin: 11/21/16 09:22 Dose: 100 mg Furosemide (Lasix) 40 mg IVP BIDDIURETIC [facility] Stop: 05/22/17 11:31 Last Admin: 11/21/16 09:21 Dose: Not Given Metoprolol Tartrate (Lopressor) 50 mg PO BID [facility] Stop: 05/21/17 21:01 Last Admin: 11/21/16 09:23 Dose: 50 mg Naloxone HCl (Narcan) 0.4 mg IVP Q2MIN PRN PRN Reason: Opioid Reversal Stop: 05/21/17 13:48 Potassium Chloride (Potassium Chloride) 20 meq PO DAILY [facility] Stop: 05/22/17 11:46 Last Admin: 11/21/16 09:22 Dose: 20 meq Simvastatin (Zocor) 40 mg PO HS [facility] Stop: 05/21/17 21:01 Last Admin: 11/20/16 20:12 Dose: 40 mg - Imaging and Cardiology Echo: report reviewed - EKG Interpretation EKG results cardiology: other (24 hour tele AVG HR 77, A-Fib.) Consult Discharge Plan - Plan Referrals: Dulce Galdamez, [employer] [Advanced Practice Nurse] - 11/28/16 11:00 am (Please follow up as schedule...)
--- NOTE | 2016-11-21 12:43 | Internal Med Progress Note ---
Date of Encounter: 11/21/16 Time of Encounter: 12:41 - Assessment and plan (1) A-fib Current Visit: Yes Status: Chronic Assessment and plan: Rate controlled. Continue metoprolol and Cardizem for now. Qualifiers: Atrial fibrillation type: chronic Qualified Code(s): I48.2 - Chronic atrial fibrillation (2) Elevated troponin Current Visit: Yes Status: Acute Assessment and plan: From demand ischemia Stable, no chest pain (3) Acute exacerbation of congestive heart failure Current Visit: Yes Status: Acute Assessment and plan: Hold lasix due to renal function worseniing Cardiology is co-managing, will follow recommendations. ECHO noted for moderate-severe TR, , EF 35-40% Continue fluid restriciton I/O negative 3L Continue daily weights Monitor closely patient is deconditioned and d/c dispo is for SNF/ECF Qualifiers: Congestive heart failure type: systolic Qualified Code(s): I50.23 - Acute on chronic systolic (congestive) heart failure (4) DVT prophylaxis Current Visit: Yes Status: Acute Assessment and plan: Pradaxa for afib, continue same (5) Coronary artery disease Current Visit: Yes Status: Chronic Assessment and plan: Non-obstructive Continue meds Qualifiers: Coronary Disease-Associated Artery/Lesion type: [place] artery [place] vs. transplanted heart: [place] heart Associated angina: with stable angina Qualified Code(s): I25.118 - Atherosclerotic heart disease of [place] coronary artery with other forms of angina pectoris (6) Severe aortic stenosis Current Visit: Yes Status: Chronic (7) Worsening renal function Current Visit: Yes Status: Acute Assessment and plan: Hold lasix Monitor chem avoid nephrotoxins - Subjective Interval history: Seen at bedside, She is being managed for Acute on chronic CHFrEF with EF 35-40% She reports feeling "distressed", denies chest pain, reported some improvement in breathing Her renal function is slightly worse today Will discontinue lasix for now and restart on a lower dose - Constitutional Vitals: Temp Pulse Resp BP Pulse Ox 98.0 F 78 17 125/85 97 11/21/16 07:48 11/21/16 07:48 11/21/16 07:48 11/21/16 07:48 11/21/16 07:48 General appearance: Present: A&O X 3, no acute distress, answers questions appropriately - Head Head exam: Present: atraumatic, normocephalic - Eye Eye exam: Present: PERRL, conjuntiva pink, sclera anicteric Pupils: Present: PERRL - Neck Neck exam general surgery: Present: supple, trachea midline. Absent: lymphadenopathy - Respiratory Respiratory exam: Present: rales. Absent: accessory muscle use, rhonchi, wheezes - Cardiovascular Cardiovascular exam: Present: RRR, +S1, +S2. Absent: diastolic murmur, gallop, rubs, systolic murmur - GI/Abdominal GI/Abdominal exam: Present: normal bowel sounds, soft, no peritoneal signs. Absent: distended, tenderness - Extremities Exam Extremities exam: Present: pedal edema, warm, radial pulses palpable and symetrical. Absent: calf tenderness, cyanotic - Neurological Exam Neurological exam: Present: alert, CN II-XII intact, oriented X3, no focal deficits. Absent: pronater drift, facial droop, speech deficit - Skin Skin exam: Present: dry, intact Internal Medicine: Result - Labs CBC & Chem 7: 11/20/16 00:38 11/21/16 04:22 Labs: BMP 11/21/16 04:22 Sodium 138 Potassium 4.4 Chloride 106 Carbon Dioxide 25 BUN 26 H D Creatinine 1.67 H D Glucose 110 H Calcium 8.4 L Cardiac Enzymes 11/20/16 Range/Units 13:41 Troponin I 0.12 H* (0-0.03) ng/mL - ABG Interpretation ABG results: PT/INR, D-dimer PT 14.1 Seconds (9.4-12.1) H 11/19/16 10:50 - Impressions Impressions Chest CTA 11/20/16 12:37 IMPRESSION: No evidence of pulmonary embolism. Moderate right and small left-sided pleural effusions, similar to prior. Irregular areas of opacity throughout the right lung and within the lingula as well as some septal thickening. Findings may be related to edema and/or scarring. Mild superimposed pneumonia not excluded. Mild cardiomegaly with reflux of contrast into the hepatic veins which can be associated with right heart failure. There is mild stranding in the left upper quadrant, likely related to mesenteric edema and given the bone body wall edema. D/ / Darling Wolff MD / Darling Wolff MD Interpreting Provider: Darling Wolff MD - VTE Documentation of Mechanical Device: Graduated compression elastic hosiery Consult Discharge Plan - Plan Referrals: Dulce Galdamez, LINE DECORATOR [Advanced Practice Nurse] - 11/28/16 11:00 am (Please follow up as schedule...)
[2016-11-21] MEDS: Acetaminophen 325 MG TABLET PO PRN (21:57)
[2016-11-22 05:17] LABS: Basophils % 0.4 %; Eosinophils # 0.3 K/mcL (0.0-0.6); Eosinophils % 3.8 %; Hematocrit 34.7 % (35.3-44.9); Hemoglobin 11.4 g/dL (11.5-15.4); Immature Granulocytes % 0.3 % (0-4); Lymphocytes # 1.4 K/mcL (0.6-4.6); Lymphocytes % 18.9 %; Mean Corpuscular HGB Conc 32.9 g/dL (31.6-35.5); Mean Corpuscular Hemoglobin 33.6 pg (28.0-33.3); Mean Corpuscular Volume 102.4 fL (83.0-100.0); Mean Platelet Volume 10.3 fL (9.4-12.4); Monocytes % 13.8 %; Neutrophils # 4.6 K/mcL (1.6-8.9); Platelet Count 164 K/mcL (140-400); Red Blood Count 3.39 M/mcL (3.82-4.97); Red Cell Distribution Width 14.6 % (11.5-14.5); Segmented Neutrophils % 62.8 %
[2016-11-22 05:32] LABS: Calcium 8.3 mg/dL (8.6-10.8); Potassium 4.3 mEq/L (3.5-4.5)
[2016-11-22] MEDS: *HR* Dabigatran 75 MG CAPSULE PO SCH ×2 (09:09→22:34)
[2016-11-22] MEDS: Diltiazem CD (24hr) 120 MG CAPSULE PO SCH (09:09)
--- NOTE | 2016-11-22 09:13 | Cardiology Progress Note ---
Date of Encounter: 11/22/16 Time of Encounter: 08:45 Assessment and Plan (1) Acute on chronic systolic congestive heart failure, NYHA class 3 Current Visit: Yes Status: Acute Per cardiology: Was on lasix at home, ran out 1 week due to financial constraints. 2+ BLE edema. Was not following fluid and NA restriction at home. CXR with small left pleural effusion. Was on IV Lasix 40mg BID, but currently on hold due to worsening renal function. Creatinine yesterday 1.67, today 1.39. Net negative 5360ml. Continue BB, no CHUCKY-I currently due to BILL. Echo 03/2016 with LVEF 45-50%. Current echo 11/20/16 LVEF 35-40%, RV is moderately dilated with mild to moderate reduction in function, flattening of septum during diastole suggesting RV volume overload, severe biatrial enlargement, moderate MR, moderate-severe TR, mild TN, trivial pericardial effusion, ascites, all sauceda hypokinetic. Pt had LHC 10/18/15 that showed angiographically normal coronaries. No repeat ischemic evaluation is warranted. Repeat echo in 1 month. Recommend Strict I/Os, daily weights, Na and fluid restriction. Recommend MARJ yusuf. Weight July 2016 162pounds, weight 11/20/16 159.7 pounds. Erroneous weight recorded for today. Will have nurse re-weigh patient today. Recommend starting home dose of lasix once creatinine normalizes. Cardiology will sign off and will follow in outpateint setting. FOllow up set. Will repeat echcoardiogram as outpatient. Patient states understanding and agrees with plan. (2) A-fib Current Visit: Yes Status: Chronic Per cardiology: Known hx of A-Fib. On cardizem and BB for rate control. 24 hour tele AVG HR 72. Anticoagulated on Pradaxa. Missed doses due to financial constraints. Upon further questioning, she states the esposito was high because the pharmacy was trying to give her a 90 day supply. She states it is $30 for 1 month supply, which is affordable for her. States Coumadin is not an option due to not having a ride to check INRs. [id number] score 7 (age, gender, CHF, HTN, thromboembolism hx). Continue Pradaxa for now. Creatinine Clearance 32. Pradaxa will need to be held if renal function worsens/creatinine clearance <30. Renal function with slight improvement today. Patient educated on increased risk of stroke due to missed pradaxa. Patient states understanding. Cardiology will sign off and will follow in outpatient setting. Educated patient on importance of medication compliance. Informed patient to call office for medication concerns. Patient states understanding. (3) BILL (acute kidney injury) Current Visit: No Status: Acute Per cardiology: -Baseline creatinine 0.8-1.0 -Was on IV lasix. -Creatinine yesterday 1.67 and lasix was held, -Creatinine today 1.39, lasix still held. -Management per primary service. (4) Elevated troponin Current Visit: Yes Status: Acute Per cardiology: -Troponins 0.06, 0.08, 0.12. Troponins flat and adynamic. -Elevated troponin in the setting of hypertension, CHF, and atrial fibrillation with RVR. -BPs 140s sytolic and 110s diastolic on admission. HR 115 on admission. -Patient denies chest pain. -ON beta kodi, CCB, statin. -Cath 10/18/15 coronary arteries angiographically normal. -Echo 11/20/16 with LVEF 35-40%, indeterminate left ventricular diastolic function, RV is moderately dilated with mild to moderate reduction in function, flattening of septum during diastole suggesting RV volume overload, severe biatrial enlargement, moderate mitral regurgitation, moderate-severe tricuspid regurgitation, mild pulmonic regurgitation, no pulmonary hypertension, trivial pericardial effusion, ascites, all sauceda hypokinetic. Per discussion with , reduced EF is felt to be related to tachycardia and poor medication compliance. Will re-evaluate in outpatient setting. -Do not suspect NSTEMI, suspect demand ischemia. NO cardiac rehab warranted at this time. (5) Hypertension Current Visit: No Status: Chronic Per cardiology: -Hypertensive on admission BP 140/110. -BPs currently 100-140s systolic, -On CCB and BB. -Will continue to monitor in outpatient setting. Qualifiers: Hypertension type: essential hypertension Qualified Code(s): I10 - Essential (primary) hypertension Discussion w patient/family: The assessment and plan as outlined above was discussed with the patient who expressed understanding and agreement. All questions were answered. Thank you for involving us in the care of your patient. Please call with any questions. Patient was discussed and reviewed with . Subjective Principal diagnosis: CHF Interval history: was admitted for increased edema and increased shortness of breath. Patient states she was out of her medications for one week due to financial constraints. Patient was placed on IV lasix, however her renal function worsened and lasix was held. Creatinine improved today. Patient states breathing is much better today. Patient also states that her peripheral edema is much better than what is usually is at home. Patient denied chest pain. Objective Vital Signs, Last 4 Hours Temp Pulse Resp BP Pulse Ox 11/22/16 06:42 97.8 F 69 20 115/71 95 11/22/16 05:45 98 F 66 143/78 99 General: Conversant, No Apparent Distress HEENT: Atraumatic, Normocephaly, Mucus Membranes Moist Neck: No JVD, Normal carotid pulses Cardiac: Reg Rate and Rhythm, Normal S1 and S2, No Murmur Lungs: Normal Breath Sounds, No Wheeze, Rales, Rhonchi Neuro: Alert and responsive, No focal deficits noted Abdomen: Soft, Non-Tender Skin: No rashes noted on visualized skin Musculoskeletal: No Chest Wall Tenderness Extremities: No Clubbing, No Cyanosis, Normal Pulses, Other (2+ bilateral lower extremity pitting edema. ) Results 11/22/16 05:05 11/22/16 05:05 Lab Results Active Medications Acetaminophen (Tylenol) 650 mg PO Q6HR PRN PRN Reason: Pain Stop: 05/23/17 16:03 Last Admin: 11/21/16 21:57 Dose: 650 mg Dabigatran (Pradaxa) 75 mg PO BID [facility] Stop: 05/21/17 21:01 Last Admin: 11/22/16 09:09 Dose: 75 mg Diltiazem HCl (Cardizem Cd) 120 mg PO DAILY [facility] Stop: 05/21/17 14:01 Last Admin: 11/22/16 09:09 Dose: 120 mg Docusate Sodium (Colace) 100 mg PO BID [facility] PRN Reason: Protocol Stop: 05/21/17 21:01 Last Admin: 11/22/16 09:09 Dose: 100 mg Metoprolol Tartrate (Lopressor) 50 mg PO BID [facility] Stop: 05/21/17 21:01 Last Admin: 11/22/16 09:10 Dose: 50 mg Naloxone HCl (Narcan) 0.4 mg IVP Q2MIN PRN PRN Reason: Opioid Reversal Stop: 05/21/17 13:48 Potassium Chloride (Potassium Chloride) 20 meq PO DAILY [facility] Stop: 05/22/17 11:46 Last Admin: 11/22/16 09:09 Dose: 20 meq Simvastatin (Zocor) 40 mg PO HS [facility] Stop: 05/21/17 21:01 Last Admin: 11/21/16 21:57 Dose: 40 mg Laboratory Tests 11/19/16 11/19/16 11/19/16 10:50 10:50 10:50 Hgb 11.9 Hct Creatinine 0.80 Troponin I 0.06 H* Triglycerides Cholesterol LDL Cholesterol, Calc HDL Cholesterol 11/19/16 11/20/16 11/20/16 17:30 00:38 00:38 Hgb Hct Creatinine 1.00 Troponin I 0.08 H* 0.12 H* Triglycerides Cholesterol LDL Cholesterol, Calc HDL Cholesterol 11/20/16 11/20/16 11/21/16 00:38 13:41 04:22 Hgb Hct Creatinine 1.67 H D Troponin I 0.12 H* Triglycerides 54 Cholesterol 126 LDL Cholesterol, Calc 75 HDL Cholesterol 40 11/22/16 11/22/16 05:05 05:05 Hgb 11.4 L Hct 34.7 L Creatinine 1.39 H Troponin I Triglycerides Cholesterol LDL Cholesterol, Calc HDL Cholesterol - Imaging and Cardiology Chest Xray: report reviewed Echo: report reviewed - EKG Interpretation EKG results cardiology: personally reviewed (ECG 11/19/16 with atrial fibrillation with RVR, HR 116.), other (Telemetry reviewed with average HR 72, atrial fibrillation. Longest pause 2.1 seconds. PVCS noted with occasional couplets. One 9 beat run of non-sustained ventricular tachycardia noted.) - VTE Documentation of Mechanical Device: Graduated compression elastic hosiery Consult Discharge Plan - Plan Referrals: Dulce Galdamez, ADMINISTRATIVE TECH [Advanced Practice Nurse] - 11/28/16 11:00 am (Please follow up as schedule...)
--- NOTE | 2016-11-22 12:11 | Internal Med Progress Note ---
Date of Encounter: 11/22/16 Time of Encounter: 12:09 - Assessment and plan (1) A-fib Current Visit: Yes Status: Chronic Assessment and plan: Rate controlled. Continue metoprolol and Cardizem for now. Continue Pradaxa Qualifiers: Atrial fibrillation type: chronic Qualified Code(s): I48.2 - Chronic atrial fibrillation (2) Elevated troponin Current Visit: Yes Status: Acute Assessment and plan: From demand ischemia -Cath 10/18/15 coronary arteries angiographically normal. -Echo 11/20/16 with LVEF 35-40%, indeterminate left ventricular diastolic function, RV is moderately dilated with mild to moderate reduction in function, flattening of septum during diastole suggesting RV volume overload, severe biatrial enlargement, moderate mitral regurgitation, moderate-severe tricuspid regurgitation, mild pulmonic regurgitation, no pulmonary hypertension, trivial pericardial effusion, ascites, all sauceda hypokinetic. Stable, no chest pain (3) Acute exacerbation of congestive heart failure Current Visit: Yes Status: Acute Assessment and plan: Hold lasix due to renal function worsening Cardiology is co-managing, appreciate input ECHO noted for moderate-severe TR, EF 35-40% Continue fluid restriciton I/O negative -5L Continue daily weights Monitor closely patient is deconditioned and d/c dispo is for SNF/ECF Qualifiers: Congestive heart failure type: systolic Qualified Code(s): I50.23 - Acute on chronic systolic (congestive) heart failure (4) DVT prophylaxis Current Visit: Yes Status: Acute Assessment and plan: Pradaxa for afib, Patient is not tolerating norma hose and SCDs. continue same (5) Coronary artery disease Current Visit: Yes Status: Chronic Assessment and plan: Non-obstructive Continue meds Qualifiers: Coronary Disease-Associated Artery/Lesion type: [place] artery [place] vs. transplanted heart: [place] heart Associated angina: with stable angina Qualified Code(s): I25.118 - Atherosclerotic heart disease of [place] coronary artery with other forms of angina pectoris (6) Severe aortic stenosis Current Visit: Yes Status: Chronic Assessment and plan: s/p TAVR, current ECHO with no aortic valve visualization (7) Worsening renal function Current Visit: Yes Status: Acute Assessment and plan: Hold lasix Monitor chem avoid nephrotoxins - Subjective Interval history: Seen at bedside, flipping through a magazine She is being managed for Acute on chronic CHFrEF with EF 35-40% She reports feeling better, denies chest pain, reported some improvement in breathing Her renal function is improved today from yesterday Will continue to hold lasix - Constitutional Vitals: Temp Pulse Resp BP Pulse Ox 97.6 F 83 18 127/75 96 11/22/16 10:32 11/22/16 10:32 11/22/16 10:32 11/22/16 10:32 11/22/16 10:32 General appearance: Present: A&O X 3, no acute distress, obese, answers questions appropriately - Head Head exam: Present: atraumatic, normocephalic - Eye Eye exam: Present: PERRL, conjuntiva pink, sclera anicteric Pupils: Present: PERRL - Neck Neck exam general surgery: Present: supple, trachea midline. Absent: lymphadenopathy - Respiratory Respiratory exam: Present: CTAB. Absent: accessory muscle use, rales, rhonchi, wheezes - Cardiovascular Cardiovascular exam: Present: irregular rhythm, +S1, +S2, systolic murmur. Absent: diastolic murmur, gallop, rubs - GI/Abdominal GI/Abdominal exam: Present: normal bowel sounds, soft, no peritoneal signs. Absent: distended, tenderness - Extremities Exam Extremities exam: Present: pedal edema (2+), warm, radial pulses palpable and symetrical. Absent: calf tenderness, cyanotic - Neurological Exam Neurological exam: Present: alert, CN II-XII intact, oriented X3, no focal deficits. Absent: pronater drift, facial droop, speech deficit - Skin Skin exam: Present: dry, intact Internal Medicine: Result - Labs CBC & Chem 7: 11/22/16 05:05 11/22/16 05:05 Labs: Short CBC 11/22/16 Range/Units 05:05 WBC 7.3 (4.3-11.1) K/mcL Hgb 11.4 L (11.5-15.4) g/dL Hct 34.7 L (35.3-44.9) % Plt Count 164 (140-400) K/mcL Neutrophils # 4.6 (1.6-8.9) K/mcL BMP 11/22/16 05:05 Sodium 137 Potassium 4.3 Chloride 107 Carbon Dioxide 26 BUN 33 H Creatinine 1.39 H Glucose 114 H Calcium 8.3 L - ABG Interpretation ABG results: PT/INR, D-dimer PT 14.1 Seconds (9.4-12.1) H 11/19/16 10:50 - VTE Documentation of Mechanical Device: Graduated compression elastic hosiery Consult Discharge Plan - Plan Referrals: Oz Frederick MD [Partnered Physician] - 11/28/16 9:45 am Dulce Galdamez CNP [Advanced Practice Nurse] - 11/28/16 11:00 am (Please follow up as schedule...)
[2016-11-22] MEDS: Acetaminophen 325 MG TABLET PO PRN (22:34)
[2016-11-23 05:34] LABS: Basophils % 0.5 %; Eosinophils # 0.3 K/mcL (0.0-0.6); Eosinophils % 4.3 %; Hematocrit 36.8 % (35.3-44.9); Hemoglobin 11.6 g/dL (11.5-15.4); Immature Granulocytes % 0.4 % (0-4); Lymphocytes # 1.2 K/mcL (0.6-4.6); Lymphocytes % 16.8 %; Mean Corpuscular HGB Conc 31.5 g/dL (31.6-35.5); Mean Corpuscular Hemoglobin 32.5 pg (28.0-33.3); Mean Corpuscular Volume 103.1 fL (83.0-100.0); Monocytes % 13.5 %; Neutrophils # 4.7 K/mcL (1.6-8.9); Platelet Count 186 K/mcL (140-400); Red Blood Count 3.57 M/mcL (3.82-4.97); Red Cell Distribution Width 14.6 % (11.5-14.5); Segmented Neutrophils % 64.5 %
[2016-11-23 05:51] LABS: Calcium 8.5 mg/dL (8.6-10.8); Potassium 4.6 mEq/L (3.5-4.5)
[2016-11-23] MEDS: Diltiazem CD (24hr) 120 MG CAPSULE PO SCH (07:48)
[2016-11-23] MEDS: *HR* Dabigatran 75 MG CAPSULE PO SCH ×2 (07:48→20:23)
--- NOTE | 2016-11-23 10:19 | Internal Med Progress Note ---
Date of Encounter: 11/23/16 Time of Encounter: 10:18 - Assessment and plan (1) A-fib Current Visit: Yes Status: Chronic Assessment and plan: Rate controlled. Continue metoprolol and Cardizem for now. Continue Pradaxa Qualifiers: Atrial fibrillation type: chronic Qualified Code(s): I48.2 - Chronic atrial fibrillation (2) Elevated troponin Current Visit: Yes Status: Acute Assessment and plan: From demand ischemia -Cath 10/18/15 coronary arteries angiographically normal. -Echo 11/20/16 with LVEF 35-40%, indeterminate left ventricular diastolic function, RV is moderately dilated with mild to moderate reduction in function, flattening of septum during diastole suggesting RV volume overload, severe biatrial enlargement, moderate mitral regurgitation, moderate-severe tricuspid regurgitation, mild pulmonic regurgitation, no pulmonary hypertension, trivial pericardial effusion, ascites, all sauceda hypokinetic. Stable, no chest pain (3) Acute exacerbation of congestive heart failure Current Visit: Yes Status: Acute Assessment and plan: Lasix was held for the past 2 days due to worsening renal function Cardiology is co-managing, appreciate input ECHO noted for moderate-severe TR, EF 35-40% Continue fluid restriciton I/O negative -6.9L Continue daily weights Monitor closely Restarted lasix po 40mg daily today patient is deconditioned and d/c dispo is for SNF/ECF Qualifiers: Congestive heart failure type: systolic Qualified Code(s): I50.23 - Acute on chronic systolic (congestive) heart failure (4) DVT prophylaxis Current Visit: Yes Status: Acute Assessment and plan: Pradaxa for afib, Patient is not tolerating norma hose and SCDs. continue same (5) Coronary artery disease Current Visit: Yes Status: Chronic Assessment and plan: Non-obstructive Continue meds Qualifiers: Coronary Disease-Associated Artery/Lesion type: [place] artery [place] vs. transplanted heart: [place] heart Associated angina: with stable angina Qualified Code(s): I25.118 - Atherosclerotic heart disease of [place] coronary artery with other forms of angina pectoris (6) Severe aortic stenosis Current Visit: Yes Status: Chronic Assessment and plan: s/p TAVR, current ECHO with no aortic valve visualization (7) Worsening renal function Current Visit: Yes Status: Acute Assessment and plan: Improving Will restart lasix at low dose po Rpt chem a.m - Subjective Interval history: Seen at bedside, no new complains She is being managed for Acute on chronic CHFrEF with EF 35-40% She reports feeling better, denies chest pain, reported some improvement in breathing Her renal function is improved today from yesterday, Cr 1.24 from 1.39 Will restart lasix po - Constitutional Vitals: Temp Pulse Resp BP Pulse Ox 98 F 75 18 116/74 95 11/23/16 07:36 11/23/16 07:36 11/23/16 07:36 11/23/16 07:36 11/23/16 07:36 General appearance: Present: A&O X 3, no acute distress, obese, answers questions appropriately - Head Head exam: Present: atraumatic, normocephalic - Eye Eye exam: Present: PERRL, conjuntiva pink, sclera anicteric Pupils: Present: PERRL - Neck Neck exam general surgery: Present: supple, trachea midline. Absent: lymphadenopathy - Respiratory Respiratory exam: Present: CTAB. Absent: accessory muscle use, rales, rhonchi, wheezes - Cardiovascular Cardiovascular exam: Present: RRR, +S1, +S2, systolic murmur. Absent: diastolic murmur, gallop, rubs - GI/Abdominal GI/Abdominal exam: Present: normal bowel sounds, soft, no peritoneal signs. Absent: distended, tenderness - Extremities Exam Extremities exam: Present: pedal edema (1+ edema bilaterally) - Neurological Exam Neurological exam: Present: alert, CN II-XII intact, oriented X3, no focal deficits. Absent: pronater drift, facial droop, speech deficit Internal Medicine: Result - Labs CBC & Chem 7: 11/23/16 05:21 11/23/16 05:21 Labs: Short CBC 11/23/16 Range/Units 05:21 WBC 7.4 (4.3-11.1) K/mcL Hgb 11.6 (11.5-15.4) g/dL Hct 36.8 (35.3-44.9) % Plt Count 186 (140-400) K/mcL Neutrophils # 4.7 (1.6-8.9) K/mcL BMP 11/23/16 05:21 Sodium 139 Potassium 4.6 H Chloride 108 Carbon Dioxide 26 BUN 32 H Creatinine 1.24 H Glucose 121 H Calcium 8.5 L - ABG Interpretation ABG results: PT/INR, D-dimer PT 14.1 Seconds (9.4-12.1) H 11/19/16 10:50 - Impressions Impressions Retroperitoneum Ultrasound 11/22/16 17:30 IMPRESSION: Unremarkable ultrasound of the kidneys. D/ / Prince Almonte MD / Prince Almonte MD Interpreting Provider: Prince Almonte MD - VTE Documentation of Mechanical Device: Graduated compression elastic hosiery Consult Discharge Plan - Plan Referrals: Oz Frederick MD [Partnered Physician] - 11/28/16 9:45 am Dulce Galdamez CNP [Advanced Practice Nurse] - 11/28/16 11:00 am (Please follow up as schedule...)
[2016-11-23] MEDS: Furosemide 40 MG TABLET PO SCH (10:53)
[2016-11-24 05:00] LABS: BUN/Creatinine Ratio 28 (6-26); Blood Urea Nitrogen 29 mg/dL (7-20); Calcium 8.6 mg/dL (8.6-10.8); Carbon Dioxide 25 mEq/L (19-29); Chloride 107 mEq/L (98-109); Glucose 114 mg/dL (70-99); Osmolality,Calculated 295 (280-300); Potassium 4.2 mEq/L (3.5-4.5); Sodium 139 mEq/L (136-145); eGFR For African Americans > 60 (> 60); eGFR For Non-African Americans 52 (> 60)
[2016-11-24] MEDS: Furosemide 40 MG TABLET PO SCH (09:31)
[2016-11-24] MEDS: *HR* Dabigatran 75 MG CAPSULE PO SCH (09:31)
[2016-11-24] MEDS: Diltiazem CD (24hr) 120 MG CAPSULE PO SCH (09:32)
--- NOTE | 2016-11-24 09:56 | Internal Med Progress Note ---
Date of Encounter: 11/24/16 Time of Encounter: 09:56 - Assessment and plan (1) A-fib Current Visit: Yes Status: Chronic Assessment and plan: Rate controlled. Continue metoprolol and Cardizem for now. Continue Pradaxa Qualifiers: Atrial fibrillation type: chronic Qualified Code(s): I48.2 - Chronic atrial fibrillation (2) Elevated troponin Current Visit: Yes Status: Acute Assessment and plan: From demand ischemia -Cath 10/18/15 coronary arteries angiographically normal. -Echo 11/20/16 with LVEF 35-40%, indeterminate left ventricular diastolic function, RV is moderately dilated with mild to moderate reduction in function, flattening of septum during diastole suggesting RV volume overload, severe biatrial enlargement, moderate mitral regurgitation, moderate-severe tricuspid regurgitation, mild pulmonic regurgitation, no pulmonary hypertension, trivial pericardial effusion, ascites, all sauceda hypokinetic. Stable, no chest pain (3) Acute exacerbation of congestive heart failure Current Visit: Yes Status: Acute Assessment and plan: Lasix was held for the past 2 days due to worsening renal function Cardiology is co-managing, appreciate input ECHO noted for moderate-severe TR, EF 35-40% Continue fluid restriciton I/O negative -12L Continue daily weights Monitor closely Continue lasix po patient is deconditioned and d/c dispo is for SNF/ECF Qualifiers: Congestive heart failure type: systolic Qualified Code(s): I50.23 - Acute on chronic systolic (congestive) heart failure (4) DVT prophylaxis Current Visit: Yes Status: Acute Assessment and plan: Pradaxa for afib, Patient is not tolerating norma hose and SCDs. continue same (5) Coronary artery disease Current Visit: Yes Status: Chronic Assessment and plan: Non-obstructive Continue meds Qualifiers: Coronary Disease-Associated Artery/Lesion type: [place] artery [place] vs. transplanted heart: [place] heart Associated angina: with stable angina Qualified Code(s): I25.118 - Atherosclerotic heart disease of [place] coronary artery with other forms of angina pectoris (6) Severe aortic stenosis Current Visit: Yes Status: Chronic Assessment and plan: s/p TAVR, current ECHO with no aortic valve visualization (7) Worsening renal function Current Visit: Yes Status: Acute Assessment and plan: Resolved - Subjective Interval history: Seen at bedside, no new complains, sitting in chair She is being managed for Acute on chronic CHFrEF with EF 35-40% She reports feeling better, denies chest pain, reported some improvement in breathing Renal function has stabilized on current dose of lasix BILL has resolved Awaiting placement D/C fitzgerald - Constitutional Vitals: Temp Pulse Resp BP Pulse Ox 98.5 F 87 16 128/80 98 11/24/16 07:33 11/24/16 07:33 11/24/16 07:33 11/24/16 07:33 11/24/16 07:33 General appearance: Present: A&O X 3, no acute distress, obese, answers questions appropriately - Head Head exam: Present: atraumatic, normocephalic - Eye Eye exam: Present: PERRL, conjuntiva pink, sclera anicteric Pupils: Present: PERRL - Neck Neck exam general surgery: Present: supple, trachea midline. Absent: lymphadenopathy - Respiratory Respiratory exam: Present: CTAB. Absent: accessory muscle use, rales, rhonchi, wheezes - Cardiovascular Cardiovascular exam: Present: RRR, +S1, +S2. Absent: diastolic murmur, gallop, rubs, systolic murmur - GI/Abdominal GI/Abdominal exam: Present: normal bowel sounds, soft, no peritoneal signs. Absent: distended, tenderness - Extremities Exam Extremities exam: Present: pedal edema - Neurological Exam Neurological exam: Present: CN II-XII intact, oriented X3, no focal deficits. Absent: pronater drift, facial droop, speech deficit - Skin Skin exam: Present: dry, intact Internal Medicine: Result - Labs CBC & Chem 7: 11/23/16 05:21 11/24/16 04:08 Labs: BMP 11/24/16 04:08 Sodium 139 Potassium 4.2 Chloride 107 Carbon Dioxide 25 BUN 29 H Creatinine 1.03 Glucose 114 H Calcium 8.6 - ABG Interpretation ABG results: PT/INR, D-dimer PT 14.1 Seconds (9.4-12.1) H 11/19/16 10:50 - VTE Documentation of Mechanical Device: Graduated compression elastic hosiery Consult Discharge Plan - Plan Referrals: Oz Frederick MD [Partnered Physician] - 11/28/16 9:45 am Dulce Galdamez CNP [Advanced Practice Nurse] - 11/28/16 11:00 am (Please follow up as schedule...)
[2016-11-24 16:54] VITALS: BP 133/62
--- NOTE | 2016-11-24 17:31 | Physician Discharge Referral ---
ExtendedCare Referral Info Transfer To: SNF Provider in Charge after Transfer: PCP Institutional Level of Care: Skilled - Diagnosis (1) A-fib Priority: Secondary Status: Chronic (2) Elevated troponin Priority: Primary Status: Resolved (3) Acute exacerbation of congestive heart failure Priority: Primary Status: Acute (4) DVT prophylaxis Priority: Secondary Status: Acute (5) Coronary artery disease Priority: Secondary Status: Chronic (6) Severe aortic stenosis Priority: Secondary Status: Resolved (7) Worsening renal function Priority: Primary Status: Resolved Prognosis: Fair Aware of Diagnosis: Patient Aware of Prognosis: Patient - Transfer Medications Home Medications: Multivitamin [Multi-Day Vitamins] 1 tab PO DAILY 03/23/16 [History] Atorvastatin [Lipitor] 40 mg PO HS #30 tablet 03/27/16 [Rx] Dabigatran [Pradaxa] 75 mg PO BID #60 capsule 03/27/16 [Rx] Albuterol Neb [Proventil Neb] 2.5 mg IH [id number] PRN 14 Days 07/03/16 [Rx] Diltiazem CD (24hr) [Cardizem CD] 120 mg PO DAILY #30 cap.er.24h 07/03/16 [Rx] Metoprolol [Lopressor] 50 mg PO BID #60 tablet 07/03/16 [Rx] Furosemide [Lasix] 40 mg PO DAILY tablet 11/24/16 [Rx] Allergies/Adverse Reactions: Allergies No Known Allergies Allergy (Verified 11/19/16 10:08) - Respiratory Orders Smoking Cessation: Smoking cessation has been advised. For more information, call the [place] Tobacco Quit Line at 3-762-OGRI-NOW. - Advance Directives Code Status: Full Code - Mobility Orders Ambulate - Rehabiliation Orders Rehab Orders: Evaluation for Physical Therapy - Diet Orders Cardiac CERTIFICATION: I certify that the transfer of the above named patient to an Extended Care Facility is necessary for the continuing treatment of the diagnosis listed. The above information is true and accurate reflection of patient's current condition. Confidential - Redisclosure prohibited without a patient's written consent.
--- NOTE | 2016-11-24 17:33 | Discharge Summary ---
Date of Encounter: 11/24/16 Time of Encounter: 17:32 - Discharge Diagnosis (1) A-fib Priority: Secondary Status: Chronic Qualifiers: Atrial fibrillation type: chronic Qualified Code(s): I48.2 - Chronic atrial fibrillation (2) Elevated troponin Priority: Primary Status: Resolved (3) Acute exacerbation of congestive heart failure Priority: Primary Status: Acute Qualifiers: Congestive heart failure type: systolic Qualified Code(s): I50.23 - Acute on chronic systolic (congestive) heart failure (4) DVT prophylaxis Priority: Secondary Status: Acute (5) Coronary artery disease Priority: Secondary Status: Chronic Qualifiers: Coronary Disease-Associated Artery/Lesion type: [place] artery [place] vs. transplanted heart: [place] heart Associated angina: with stable angina Qualified Code(s): I25.118 - Atherosclerotic heart disease of [place] coronary artery with other forms of angina pectoris (6) Severe aortic stenosis Priority: Secondary Status: Resolved (7) Worsening renal function Priority: Primary Status: Resolved - Discharge Medications Home Medications: Multivitamin [Multi-Day Vitamins] 1 tab PO DAILY 03/23/16 [History] Atorvastatin [Lipitor] 40 mg PO HS #30 tablet 03/27/16 [Rx] Dabigatran [Pradaxa] 75 mg PO BID #60 capsule 03/27/16 [Rx] Albuterol Neb [Proventil Neb] 2.5 mg IH [id number] PRN 14 Days 07/03/16 [Rx] Diltiazem CD (24hr) [Cardizem CD] 120 mg PO DAILY #30 cap.er.24h 07/03/16 [Rx] Metoprolol [Lopressor] 50 mg PO BID #60 tablet 07/03/16 [Rx] Furosemide [Lasix] 40 mg PO DAILY tablet 11/24/16 [Rx] Allergies/Adverse Reactions: Allergies No Known Allergies Allergy (Verified 11/19/16 10:08) Procedures/tests Complete & Pending: Procedures Performed prior 72 hours Category Date Time Status Retroperitoneal Ultrasound - Complete [US Exams 11/22/16 17:30 Completed retroperitoneal comp] [US] Routine Date of admission: 11/21/16 15:05 Primary care physician: PCP NO Discharging clinician: Rafael Sams Anticipated date of discharge: 11/24/16 - Patient Status Disposition: Transfer Inpatient Rehab Fac Condition: Fair Functional capacity at discharge: independent ambulation Overall status at discharge: patient is progressing back to baseline - Discharge Instructions Follow Up With: Oz Frederick MD [Partnered Physician] - 11/28/16 9:45 am Dulce Galdamez CNP [Advanced Practice Nurse] - 11/28/16 11:00 am (Please follow up as schedule...) - Diet and Activity Activity: resume usual activities as tolerated Diet: low fat, low cholesterol, low salt diet Interval History: See below Hospital course: Ms. Crodova is a 76 year old female that was admitted for acute exacerbation of CHF secondary to non-compliance with medications and salt and fluid indiscretion. Patient states she was out of her medications for one week due to financial constraints. She had also not taken any of her other medications for a week. She has a PMH of atrial fibrillation, cardiomyopathy, congestive heart failure, the pain thrombosis, hyperlipidemia and hypertension She was started on IV lasix at 40mg bid nd made adequate diuresis. She has a cumulative negative fluid balance of 12.8L. She also has elevated troponins and cardiology was consulted. Echo 03/2016 with LVEF 45-50%. During this admission, echo 11/20/16 LVEF 35-40%, RV is moderately dilated with mild to moderate reduction in function, flattening of septum during diastole suggesting RV volume overload, severe biatrial enlargement, moderate MR, moderate-severe TR, mild PA, trivial pericardial effusion, ascites, all sauceda hypokinetic. Pt had LHC 10/18/15 that showed angiographically normal coronaries hence LHC was not repeated and elevated troponin was attributed to demand ischemia due to CHF Patient's hospital stay was complicated by BILL which promptly resolved with stopping her lasix. She has been resumed on po lasix and is tolerating at current dose of 40mg daily I recommend to slowly increase back to home dose of 60mg daily as tolerated by renal function PT/OT review revealed patient was deconditioned, and recommendation for discharge disposition to in-patient rehab Patient is stable at this time to continue current management at in-patient rehab, with slow increase of lasix daily to achieve home dose of 60mg daily as tolerated by her renal function. - Time Spent with Patient Total time spent providing and/or coordinating discharge services: - Constitutional Vitals: Temp Pulse Resp BP Pulse Ox 98.5 F 72 16 133/62 94 11/24/16 16:52 11/24/16 16:52 11/24/16 16:52 11/24/16 16:52 11/24/16 16:52 General appearance: Present: A&O X 3, no acute distress, obese, answers questions appropriately - Head Head exam: Present: atraumatic, normocephalic - Eye Eye exam: Present: PERRL, conjuntiva pink, sclera anicteric Pupils: Present: PERRL - Neck Neck exam general surgery: Present: supple, trachea midline. Absent: lymphadenopathy - Respiratory Respiratory exam: Present: CTAB. Absent: accessory muscle use, rales, rhonchi, wheezes - Cardiovascular Cardiovascular exam: Present: RRR, +S1, +S2. Absent: diastolic murmur, gallop, rubs, systolic murmur - GI/Abdominal GI/Abdominal exam: Present: normal bowel sounds, soft, no peritoneal signs. Absent: distended, tenderness - Extremities Exam Extremities exam: Present: pedal edema - Neurological Exam Neurological exam: Present: alert, CN II-XII intact, oriented X3, no focal deficits. Absent: pronater drift, facial droop, speech deficit - Skin Skin exam: Present: dry. Absent: rash - VTE Documentation of Mechanical Device: Graduated compression elastic hosiery
== END 2016-11-24 19:10 | DRG 292 ==
LOC: EMEROO 10:07 → 2ANU 10:07 → SUATTDRO 12:51 → 2ANU 13:49
PROVIDERS: ADMIT Internal Medicine Endocrinology, Diabetes & Metabolism; ATTEND Internal Medicine

== ENCOUNTER 2016-12-31 18:26 | Inpatient (IN) ==
[2016-12-31] MEDS ORDERED: 0.9 % Sodium Chloride 500 ML IVC ONE (18:32)
[2016-12-31 19:05] LABS: Hematocrit 39.4 % (35.3-44.9); Immature Granulocytes % 0.4 % (0-4); Lymphocytes % 13.8 %; Mean Corpuscular Hemoglobin 32.5 pg (28.0-33.3); Mean Corpuscular Volume 98.5 fL (83.0-100.0); Mean Platelet Volume 10.2 fL (9.4-12.4); Platelet Count 162 K/mcL (140-400); Red Cell Distribution Width 12.6 % (11.5-14.5); Segmented Neutrophils % 71.9 %
[2016-12-31 19:06] LABS: Basophils % 0.3 %; Eosinophils # 0.1 K/mcL (0.0-0.6); Eosinophils % 1.6 %; Monocytes # 0.9 K/mcL (0.0-1.3); Neutrophils # 5.3 K/mcL (1.6-8.9)
[2016-12-31 19:13] LABS: Bilirubin,Urine Negative (Negative); Blood,Urine Small (Negative); Clarity,Urine Clear (Clear); Color,Urine Yellow (Yellow); Glucose,Urine (UA) Normal (Normal); Ketones,Urine Negative (Negative); Leukocyte Esterase,Urine Negative (Negative); Nitrite,Urine Negative (Negative); Protein,Urine 100 mg/dL (Neg-Trace); Specific Gravity,Urine 1.014 (1.010-1.025); Urobilinogen,Urine Normal (Normal)
[2016-12-31 19:14] LABS: Bacteria,Urine None Seen per hpf (None-Few); Hyaline Casts,Urine None Seen per lpf (None-Few); Squamous Epithelial Cell,Urine Many per lpf (None-Few)
[2016-12-31] MEDS ORDERED: Aspirin 81 MG TAB.CHEW PO ONE (19:21)
[2016-12-31] MEDS ORDERED: *HR* Enoxaparin 80 MG/0.8 ML SYRINGE SQ STA (19:22)
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
[2016-12-31 19:40] LABS: INR 1.1; Prothrombin Time 12.3 Seconds (9.4-12.1)
[2016-12-31 19:43] LABS: Activated Partial Thrombo Time 26.3 Seconds (26.0-36.0)
[2016-12-31 19:46] LABS: BUN/Creatinine Ratio 15 (6-26); Blood Urea Nitrogen 12 mg/dL (7-20); Calcium 8.9 mg/dL (8.6-10.8); Carbon Dioxide 21 mEq/L (19-29); Chloride 106 mEq/L (98-109); Glucose 97 mg/dL (70-99); Osmolality,Calculated 284 (280-300); Potassium 3.7 mEq/L (3.5-4.5); Sodium 137 mEq/L (136-145); eGFR For African Americans > 60 (> 60); eGFR For Non-African Americans > 60 (> 60)
[2016-12-31 19:49] LABS: Albumin 3.6 g/dL (3.5-5.0); Albumin/Globulin Ratio 0.8 (1.1-2.2); Bilirubin,Direct 0.4 mg/dL (0.0-0.5); Bilirubin,Indirect 0.4 mg/dL (0.0-1.2); Bilirubin,Total 0.8 mg/dL (0.2-1.2); Globulin 4.4 g/dL (2.4-3.5)
[2016-12-31] MEDS ORDERED: Naloxone 0.4 MG/ML INJ IVP PRN (23:32)
[2016-12-31] MEDS ORDERED: Ondansetron 4 MG/2 ML VIAL IVP PRN (23:32)
[2016-12-31] MEDS ORDERED: Nitroglycerin 0.4 MG TAB.SUBL SL PRN (23:40)
--- NOTE | 2016-12-31 23:58 | Event Note ---
Date of Encounter: 12/31/16 Time of Encounter: 23:56 Patient was brought to the hospital for evaluation of lower extremity swelling and shortness of breath. She is a poor historian. On exam: She is febrile with rectal temperature of 101.5. heart auscultation reveals tachycardic irregularly irregular S1 with a systolic murmur. Lungs are clear to auscultation bilaterally. Abdomen soft and nontender. Extremities have 2+ lower extremity pitting edema and skin redness of both lower extremities with small scrapes and crusted wounds on both shins. Plan: Acute and chronic systolic heart failure: We will treat this with IV Lasix , daily weights, strict I's and O's, sodium restricted diet. Fluid restriction of 1500 mL daily. Sepsis secondary to bilateral lower extremity cellulitis: We will check blood cultures, check lactic acid. We will treat her empirically with IV vancomycin, dosing by levels. She is at high risk for morbidity mortality and complications due to IV vancomycin which requires frequent blood level monitoring for toxicity.
[2017-01-01] MEDS ORDERED: Vancomycin 1,250 MG in D5% in Water 250 ML IVPB SCH
[2017-01-01] MEDS ORDERED: Vancomycin 1,500 MG in D5% in Water 250 ML IVPB SCH (00:30)
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
[2017-01-01 01:34] LABS: Basophils % 0.3 %; Eosinophils # 0.1 K/mcL (0.0-0.6); Eosinophils % 1.7 %; Hematocrit 31.7 % (35.3-44.9); Hemoglobin 10.6 g/dL (11.5-15.4); Immature Granulocytes % 0.4 % (0-4); Lymphocytes # 1.5 K/mcL (0.6-4.6); Lymphocytes % 20.3 %; Mean Corpuscular HGB Conc 33.4 g/dL (31.6-35.5); Mean Corpuscular Hemoglobin 32.9 pg (28.0-33.3); Mean Corpuscular Volume 98.4 fL (83.0-100.0); Neutrophils # 4.7 K/mcL (1.6-8.9); Platelet Count 133 K/mcL (140-400); Red Blood Count 3.22 M/mcL (3.82-4.97); Red Cell Distribution Width 12.5 % (11.5-14.5); Segmented Neutrophils % 63.3 %
[2017-01-01 01:45] LABS: INR 1.4; Prothrombin Time 14.9 Seconds (9.4-12.1)
[2017-01-01 01:47] LABS: Activated Partial Thrombo Time 38.8 Seconds (26.0-36.0)
[2017-01-01 01:50] LABS: Alanine Aminotransferase 19 Units/L (0-55); Albumin/Globulin Ratio 0.8 (1.1-2.2); Alkaline Phosphatase 57 Units/L (38-126); Aspartate Amino Transferase 17 Units/L (5-34); BUN/Creatinine Ratio 14 (6-26); Bilirubin,Total 0.9 mg/dL (0.2-1.2); Blood Urea Nitrogen 10 mg/dL (7-20); Carbon Dioxide 23 mEq/L (19-29); Chloride 108 mEq/L (98-109); Cholesterol 124 mg/dL (< 200); Globulin 3.3 g/dL (2.4-3.5); Glucose 140 mg/dL (70-99); HDL Cholesterol 41 mg/dL (40-59); LDL Cholesterol,Calculated 74 mg/dL (0-99); Magnesium 1.5 mg/dL (1.6-2.6); Osmolality,Calculated 285 (280-300); Potassium 3.3 mEq/L (3.5-4.5); Sodium 137 mEq/L (136-145); Triglycerides 43 mg/dL (< 150); eGFR For African Americans > 60 (> 60); eGFR For Non-African Americans > 60 (> 60)
[2017-01-01 01:56] LABS: Albumin 2.8 g/dL (3.5-5.0); Total Protein 6.1 g/dL (6.0-8.3)
[2017-01-01] MEDS ORDERED: Furosemide 20 MG TABLET PO SCH ×2 (06:00→17:00)
[2017-01-01] MEDS ORDERED: *HR* Heparin 5,000 UNIT/ML VIAL SQ SCH (06:00)
[2017-01-01] MEDS: Pantoprazole 40 MG VIAL IVP SCH (08:43)
[2017-01-01] MEDS ORDERED: Diltiazem CD (24hr) 120 MG CAPSULE PO SCH (09:00)
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
[2017-01-01] MEDS ORDERED: Ipratropium/Albuterol Neb 3 ML IH PRN (15:37)
[2017-01-01 15:55] LABS: Acinetobacter baumannii by PCR Not Detected (Not Detect); Candida albicans by PCR Not Detected (Not Detect); Candida glabrata by PCR Not Detected (Not Detect); Candida krusei by PCR Not Detected (Not Detect); Candida parapsilosis by PCR Not Detected (Not Detect); Candida tropicalis by PCR Not Detected (Not Detect); Enterococcus by PCR Not Detected (Not Detect); Escherichia coli by PCR ***DETECTED*** (Not Detect); Klebsiella oxytoca by PCR Not Detected (Not Detect); Klebsiella pneumoniae by PCR Not Detected (Not Detect); Pseudomonas aeruginosa by PCR Not Detected (Not Detect); Serratia marcescens by PCR Not Detected (Not Detect); Staphylococcus aureus by PCR Not Detected (Not Detect); Streptococcus agalactiae(B)PCR Not Detected (Not Detect); Streptococcus by PCR Not Detected (Not Detect); Streptococcus pneumoniae PCR Not Detected (Not Detect); Streptococcus pyogenes (A) PCR Not Detected (Not Detect); blaKPC Carbapenem-Resist Gene Not Detected (Not Detect); mecA Methicillin-Resist Gene Not Detected (Not Detect); vanA/B Vancomycin-Resist Genes Not Detected (Not Detect)
[2017-01-01] MEDS: Diltiazem SR (12hr) 60 MG CAPSULE PO SCH ×2 (16:32→20:31)
[2017-01-01] MEDS: *HR* Dabigatran 75 MG CAPSULE PO SCH (20:30)
[2017-01-02] MEDS: Vancomycin 1,250 MG in D5% in Water 250 ML IVPB SCH ×2 (00:34→23:44)
[2017-01-02 05:16] LABS: Basophils % 0.3 %; Eosinophils # 0.3 K/mcL (0.0-0.6); Eosinophils % 4.6 %; Hematocrit 34.2 % (35.3-44.9); Hemoglobin 11.2 g/dL (11.5-15.4); Immature Granulocytes % 0.4 % (0-4); Lymphocytes # 1.5 K/mcL (0.6-4.6); Lymphocytes % 21.9 %; Mean Corpuscular HGB Conc 32.7 g/dL (31.6-35.5); Mean Corpuscular Hemoglobin 32.3 pg (28.0-33.3); Mean Corpuscular Volume 98.6 fL (83.0-100.0); Mean Platelet Volume 10.2 fL (9.4-12.4); Monocytes % 14.2 %; Platelet Count 142 K/mcL (140-400); Red Blood Count 3.47 M/mcL (3.82-4.97); Red Cell Distribution Width 12.5 % (11.5-14.5); Segmented Neutrophils % 58.6 %
[2017-01-02 05:37] LABS: BUN/Creatinine Ratio 17 (6-26); Blood Urea Nitrogen 16 mg/dL (7-20); Calcium 8.1 mg/dL (8.6-10.8); Carbon Dioxide 27 mEq/L (19-29); Chloride 103 mEq/L (98-109); Glucose 103 mg/dL (70-99); Magnesium 1.6 mg/dL (1.6-2.6); Osmolality,Calculated 287 (280-300); Potassium 3.5 mEq/L (3.5-4.5); Sodium 138 mEq/L (136-145); eGFR For African Americans > 60 (> 60); eGFR For Non-African Americans 59 (> 60)
--- NOTE | 2017-01-02 07:17 | Venous Imaging Report ---
LE Venous Duplex Patient Name:Inocencia Cordova Order Number:[id number] Procedure Date:01/01/2017 Date:1Age:76 yrs Gender:Female Location:[facility] Room #: 2NE20 Director Of Quality Improvement:Erin Castillo MD:Andrea Bee, PLANE RUNNER phone circuit operator:None Reading MD:Dedrick Damian MD Study Quality:Adequate Primary Indications:Swelling Secondary Indications: Pain Risk Factors Yes/No Hx of DVT Anticoagulants Impressions: Normal bilateral lower extremity deep and superficial venous exam. Recommendations: After imaging the patient returned to their room. Test completed on 01/01/2017 at 4:42:48 pm. Findings Prior Intervention: The patient has undergone the following procedure: le venous duplex. Prior Study: No significant change compared to prior study dated: 06/27/2016. Lower Extremity Venous Duplex Side Vein Compress Spontaneous Flow Augment Diameter (cm) Depth (cm) Right Distal Iliac Normal Yes Phasic Yes Right Common Femoral Normal Yes Phasic Yes Right Superficial Femoral Normal Yes Phasic Yes Right Popliteal Normal Yes Phasic Yes Right Posterior Tibial Normal Yes Phasic Yes Right Peroneal Normal Yes Phasic Yes Right Great Saphenous Normal Yes Phasic Yes Right Lesser Saphenous Normal Yes Phasic Yes Left Distal Iliac Normal Yes Phasic Yes Left Common Femoral Normal Yes Phasic Yes Left Superficial Femoral Normal Yes Phasic Yes Left Popliteal Normal Yes Phasic Yes Left Posterior Tibial Normal Yes Phasic Yes Left Peroneal Normal Yes Phasic Yes Left Great Saphenous Normal Yes Phasic Yes Left Lesser Saphenous Normal Yes Phasic Yes Updated by Dedrick Damian MD on 01/02/2017 7:13:38 AM electronically signed on 01/02/2017 7:14:12 AM with status of Final
[2017-01-02] MEDS ORDERED: Aminoglycoside Consult 1 EACH MC ONE (07:31)
[2017-01-02] MEDS: Furosemide 40 MG TABLET PO SCH (09:44)
[2017-01-02] MEDS: *HR* Dabigatran 75 MG CAPSULE PO SCH ×2 (09:44→21:59)
[2017-01-02] MEDS: Pantoprazole 40 MG VIAL IVP SCH (09:44)
[2017-01-02] MEDS: Diltiazem CD (24hr) 120 MG CAPSULE PO SCH (09:49)
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
--- NOTE | 2017-01-02 17:57 | Electrocardiograph Report ---
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
[2017-01-03 04:00] LABS: Hematocrit 32.8 % (35.3-44.9); Hemoglobin 10.7 g/dL (11.5-15.4); Immature Granulocytes % 0.3 % (0-4); Lymphocytes % 26.8 %; Mean Corpuscular HGB Conc 32.6 g/dL (31.6-35.5); Mean Corpuscular Hemoglobin 32.3 pg (28.0-33.3); Mean Corpuscular Volume 99.1 fL (83.0-100.0); Mean Platelet Volume 10.2 fL (9.4-12.4); Monocytes % 15.5 %; Platelet Count 150 K/mcL (140-400); Red Blood Count 3.31 M/mcL (3.82-4.97); Red Cell Distribution Width 12.5 % (11.5-14.5); Segmented Neutrophils % 50.8 %
[2017-01-03 04:01] LABS: Basophils % 0.5 %; Eosinophils # 0.4 K/mcL (0.0-0.6); Eosinophils % 6.1 %; Lymphocytes # 1.6 K/mcL (0.6-4.6); Monocytes # 0.9 K/mcL (0.0-1.3); Neutrophils # 3.1 K/mcL (1.6-8.9)
[2017-01-03 04:13] LABS: BUN/Creatinine Ratio 27 (6-26); Blood Urea Nitrogen 22 mg/dL (7-20); Calcium 8.1 mg/dL (8.6-10.8); Carbon Dioxide 26 mEq/L (19-29); Chloride 103 mEq/L (98-109); Glucose 116 mg/dL (70-99); Osmolality,Calculated 288 (280-300); Potassium 3.5 mEq/L (3.5-4.5); Sodium 137 mEq/L (136-145); eGFR For African Americans > 60 (> 60); eGFR For Non-African Americans > 60 (> 60)
[2017-01-03] MEDS: Furosemide 40 MG TABLET PO SCH (08:49)
[2017-01-03] MEDS: *HR* Dabigatran 75 MG CAPSULE PO SCH ×2 (08:50→22:42)
[2017-01-03] MEDS: Diltiazem CD (24hr) 120 MG CAPSULE PO SCH (08:50)
[2017-01-03] MEDS: Doxycycline 100 MG CAPSULE PO SCH ×2 (11:08→22:42)
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
[2017-01-04 05:28] LABS: Basophils % 0.7 %; Eosinophils # 0.4 K/mcL (0.0-0.6); Eosinophils % 5.9 %; Hematocrit 33.5 % (35.3-44.9); Hemoglobin 11.1 g/dL (11.5-15.4); Immature Granulocytes % 0.3 % (0-4); Lymphocytes # 1.5 K/mcL (0.6-4.6); Lymphocytes % 25.1 %; Mean Corpuscular HGB Conc 33.1 g/dL (31.6-35.5); Mean Corpuscular Hemoglobin 32.8 pg (28.0-33.3); Mean Corpuscular Volume 99.1 fL (83.0-100.0); Mean Platelet Volume 10.4 fL (9.4-12.4); Monocytes # 0.9 K/mcL (0.0-1.3); Monocytes % 14.3 %; Neutrophils # 3.3 K/mcL (1.6-8.9); Platelet Count 172 K/mcL (140-400); Red Blood Count 3.38 M/mcL (3.82-4.97); Red Cell Distribution Width 12.5 % (11.5-14.5); Segmented Neutrophils % 53.7 %
[2017-01-04 05:53] LABS: BUN/Creatinine Ratio 33 (6-26); Blood Urea Nitrogen 28 mg/dL (7-20); Calcium 8.5 mg/dL (8.6-10.8); Carbon Dioxide 31 mEq/L (19-29); Chloride 105 mEq/L (98-109); Glucose 92 mg/dL (70-99); Osmolality,Calculated 299 (280-300); Potassium 3.9 mEq/L (3.5-4.5); Sodium 142 mEq/L (136-145); eGFR For African Americans > 60 (> 60); eGFR For Non-African Americans > 60 (> 60)
[2017-01-04 06:16] LABS: Platelet Estimate Normal (Normal)
[2017-01-04 06:17] LABS: Large Platelets Present (Not Present)
[2017-01-04 06:34] VITALS: BP 119/77
[2017-01-04] MEDS: Furosemide 40 MG TABLET PO SCH (09:51)
[2017-01-04] MEDS: *HR* Dabigatran 75 MG CAPSULE PO SCH (09:51)
[2017-01-04] MEDS: Doxycycline 100 MG CAPSULE PO SCH (09:51)
[2017-01-04] MEDS: Diltiazem CD (24hr) 120 MG CAPSULE PO SCH (09:51)
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
== END 2017-01-04 14:20 | disposition home or self-care (01) | DRG 871 ==
LOC: EMEROO 18:26 → 2NENU 18:26
PROVIDERS: ADMIT Internal Medicine Sleep Medicine; ATTEND Internal Medicine

== ENCOUNTER 2017-01-11 14:46 | Observation (INO) ==
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
[2017-01-11 16:17] LABS: Bilirubin,Urine Negative (Negative); Blood,Urine Trace-intact (Negative); Clarity,Urine Clear (Clear); Color,Urine Yellow (Yellow); Glucose,Urine (UA) Normal (Normal); Ketones,Urine Negative (Negative); Leukocyte Esterase,Urine Negative (Negative); Nitrite,Urine Negative (Negative); Protein,Urine 30 mg/dL (Neg-Trace); Urobilinogen,Urine Normal (Normal)
[2017-01-11 16:24] LABS: Squamous Epithelial Cell,Urine Few per lpf (None-Few)
[2017-01-11 16:25] LABS: Renal Epithelial Cells,Urine Few per hpf (None-Few); WBC,Urine 0-3 per hpf (0-3)
[2017-01-11 16:34] LABS: Amphetamine Screen,Urine Negative ng/mL (Cutoff=1000); Barbiturate Screen,Urine Negative ng/mL (Cutoff=200); Benzodiazepines Screen,Urine Negative ng/mL (Cutoff=200); Cannabinoid Screen,Urine Negative ng/mL (Cutoff = 50); Cocaine Screen,Urine Negative ng/mL (Cutoff= 300); Opiate Screen,Urine Negative ng/mL (Cutoff=300); Phencyclidine Screen,Urine Negative ng/mL (Cutoff=25)
[2017-01-11 16:39] LABS: Basophils % 0.6 %; Eosinophils # 0.1 K/mcL (0.0-0.6); Eosinophils % 1.5 %; Hematocrit 37.7 % (35.3-44.9); Hemoglobin 12.3 g/dL (11.5-15.4); Immature Granulocytes % 0.3 % (0-4); Lymphocytes # 1.3 K/mcL (0.6-4.6); Lymphocytes % 19.1 %; Mean Corpuscular HGB Conc 32.6 g/dL (31.6-35.5); Mean Corpuscular Hemoglobin 32.1 pg (28.0-33.3); Mean Corpuscular Volume 98.4 fL (83.0-100.0); Mean Platelet Volume 9.7 fL (9.4-12.4); Monocytes # 0.4 K/mcL (0.0-1.3); Monocytes % 6.4 %; Neutrophils # 4.9 K/mcL (1.6-8.9); Platelet Count 216 K/mcL (140-400); Red Blood Count 3.83 M/mcL (3.82-4.97); Red Cell Distribution Width 12.5 % (11.5-14.5); Segmented Neutrophils % 72.1 %
[2017-01-11 16:50] LABS: INR 1.1; Prothrombin Time 12.1 Seconds (9.4-12.1)
[2017-01-11 16:53] LABS: Activated Partial Thrombo Time 31.8 Seconds (26.0-36.0); Alanine Aminotransferase 33 Units/L (0-55); Albumin 3.7 g/dL (3.5-5.0); Albumin/Globulin Ratio 0.9 (1.1-2.2); Alkaline Phosphatase 80 Units/L (38-126); Aspartate Amino Transferase 35 Units/L (5-34); BUN/Creatinine Ratio 17 (6-26); Bilirubin,Direct 0.3 mg/dL (0.0-0.5); Bilirubin,Indirect 0.4 mg/dL (0.0-1.2); Bilirubin,Total 0.7 mg/dL (0.2-1.2); Blood Urea Nitrogen 15 mg/dL (7-20); Calcium 9.4 mg/dL (8.6-10.8); Carbon Dioxide 24 mEq/L (19-29); Chloride 109 mEq/L (98-109); Globulin 3.9 g/dL (2.4-3.5); Glucose 96 mg/dL (70-99); Osmolality,Calculated 295 (280-300); Potassium 4.1 mEq/L (3.5-4.5); Sodium 142 mEq/L (136-145); Total Protein 7.6 g/dL (6.0-8.3); eGFR For African Americans > 60 (> 60); eGFR For Non-African Americans > 60 (> 60)
[2017-01-11 17:02] LABS: Ethanol < 10 mg/dL (0-10)
[2017-01-11] MEDS ORDERED: Aspirin 325 MG TABLET PO ONE (17:12)
[2017-01-11] MEDS ORDERED: *HR* Metoprolol 5 MG/5 ML VIAL IVP ONE (17:43)
[2017-01-11] MEDS ORDERED: Ondansetron 4 MG/2 ML VIAL IVP PRN (21:11)
[2017-01-11] MEDS ORDERED: Acetaminophen 325 MG TABLET PO PRN (21:11)
[2017-01-11] MEDS ORDERED: Naloxone 0.4 MG/ML INJ IVP PRN (21:11)
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
[2017-01-11] MEDS: *HR* Dabigatran 75 MG CAPSULE PO SCH (22:17)
[2017-01-11] MEDS: Furosemide 40 MG TABLET PO SCH (22:17)
[2017-01-11] MEDS ORDERED: *HR* Metoprolol 5 MG/5 ML VIAL IVP PRN (22:21)
[2017-01-11] MEDS ORDERED: Albuterol Neb 0.63 MG/3 ML VIAL IH PRN (22:42)
[2017-01-11] MEDS ORDERED: Levalbuterol 1 PUFF INHALER IH PRN (22:43)
[2017-01-12] MEDS ORDERED: Levalbuterol 1 PUFF INHALER IH SCH
[2017-01-12] MEDS ORDERED: Albuterol Neb 0.63 MG/3 ML VIAL IH SCH (04:00)
[2017-01-12 05:34] LABS: Basophils # 0.1 K/mcL (0.0-0.2); Eosinophils # 0.3 K/mcL (0.0-0.6); Eosinophils % 4.2 %; Hematocrit 34.1 % (35.3-44.9); Hemoglobin 11.3 g/dL (11.5-15.4); Immature Granulocytes % 0.3 % (0-4); Lymphocytes # 1.7 K/mcL (0.6-4.6); Lymphocytes % 28.5 %; Mean Corpuscular HGB Conc 33.1 g/dL (31.6-35.5); Mean Corpuscular Hemoglobin 32.9 pg (28.0-33.3); Mean Corpuscular Volume 99.4 fL (83.0-100.0); Mean Platelet Volume 9.9 fL (9.4-12.4); Monocytes # 0.7 K/mcL (0.0-1.3); Monocytes % 11.1 %; Neutrophils # 3.3 K/mcL (1.6-8.9); Platelet Count 200 K/mcL (140-400); Red Blood Count 3.43 M/mcL (3.82-4.97); Red Cell Distribution Width 12.8 % (11.5-14.5); Segmented Neutrophils % 54.9 %
[2017-01-12 05:55] LABS: Alanine Aminotransferase 32 Units/L (0-55); Albumin 3.2 g/dL (3.5-5.0); Albumin/Globulin Ratio 0.9 (1.1-2.2); Alkaline Phosphatase 71 Units/L (38-126); Aspartate Amino Transferase 34 Units/L (5-34); BUN/Creatinine Ratio 16 (6-26); Bilirubin,Total 0.5 mg/dL (0.2-1.2); Blood Urea Nitrogen 16 mg/dL (7-20); Calcium 8.7 mg/dL (8.6-10.8); Carbon Dioxide 24 mEq/L (19-29); Chloride 108 mEq/L (98-109); Chol/HDL Ratio 3.2 (0-4.9); Cholesterol 145 mg/dL (< 200); Globulin 3.5 g/dL (2.4-3.5); Glucose 99 mg/dL (70-99); HDL Cholesterol 45 mg/dL (40-59); LDL Cholesterol,Calculated 90 mg/dL (0-99); Magnesium 1.8 mg/dL (1.6-2.6); Osmolality,Calculated 291 (280-300); Potassium 4.1 mEq/L (3.5-4.5); Sodium 140 mEq/L (136-145); Total Protein 6.7 g/dL (6.0-8.3); Triglycerides 52 mg/dL (< 150); eGFR For African Americans > 60 (> 60); eGFR For Non-African Americans 55 (> 60)
[2017-01-12] MEDS: Diltiazem CD (24hr) 120 MG CAPSULE PO SCH (08:59)
[2017-01-12] MEDS: *HR* Dabigatran 75 MG CAPSULE PO SCH ×2 (08:59→21:44)
[2017-01-12] MEDS: Furosemide 40 MG TABLET PO SCH (09:00)
[2017-01-12] MEDS: Aspirin Enteric Coated 81 MG Tablet PO SCH (09:00)
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
[2017-01-13] MEDS: Furosemide 40 MG TABLET PO SCH (08:27)
[2017-01-13] MEDS: *HR* Dabigatran 75 MG CAPSULE PO SCH ×2 (08:27→22:05)
[2017-01-13] MEDS: Diltiazem CD (24hr) 120 MG CAPSULE PO SCH (08:27)
[2017-01-13] MEDS: Aspirin Enteric Coated 81 MG Tablet PO SCH (08:27)
--- NOTE | 2017-01-13 08:55 | Electrocardiograph Report ---
[place] [id number] Test Date: 2017-01-11 Pat Name: Inocencia Cordova Department: 104 Room: 3B41 Gender: F Personal Security Specialist: EMIR : 1940 Requested By: Sharif Flores Order Number: [id number] Reading MD: Alfonso Reeves DO Measurements Intervals Williams Rate: 114 P: UT: 0 QRS: 60 QRSD: 76 T: -42 QT: 322 QTc: 389 Interpretive Statements ATRIAL FIBRILLATION WITH RAPID VENTRICULAR RESPONSE NONSPECIFIC ST \T\ T-WAVE ABNORMALITY Electronically Signed On 01-13-2017 8:53:32 EDT by Alfonso Reeves DO
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
[2017-01-14 04:11] LABS: Basophils # 0.1 K/mcL (0.0-0.2); Basophils % 0.8 %; Eosinophils # 0.3 K/mcL (0.0-0.6); Eosinophils % 5.2 %; Hematocrit 34.2 % (35.3-44.9); Hemoglobin 11.2 g/dL (11.5-15.4); Immature Granulocytes % 0.3 % (0-4); Lymphocytes % 31.3 %; Mean Corpuscular HGB Conc 32.7 g/dL (31.6-35.5); Mean Corpuscular Hemoglobin 32.6 pg (28.0-33.3); Mean Corpuscular Volume 99.4 fL (83.0-100.0); Mean Platelet Volume 10.3 fL (9.4-12.4); Monocytes # 0.7 K/mcL (0.0-1.3); Monocytes % 11.3 %; Neutrophils # 3.3 K/mcL (1.6-8.9); Platelet Count 225 K/mcL (140-400); Red Blood Count 3.44 M/mcL (3.82-4.97); Red Cell Distribution Width 12.7 % (11.5-14.5); Segmented Neutrophils % 51.1 %
[2017-01-14 04:27] LABS: BUN/Creatinine Ratio 34 (6-26); Calcium 8.5 mg/dL (8.6-10.8); Carbon Dioxide 27 mEq/L (19-29); Chloride 105 mEq/L (98-109); Glucose 99 mg/dL (70-99); Osmolality,Calculated 295 (280-300); Potassium 3.8 mEq/L (3.5-4.5); Sodium 139 mEq/L (136-145); eGFR For African Americans > 60 (> 60); eGFR For Non-African Americans 56 (> 60)
[2017-01-14 04:30] LABS: Blood Urea Nitrogen 33 mg/dL (7-20)
[2017-01-14] MEDS: *HR* Dabigatran 75 MG CAPSULE PO SCH ×2 (08:32→20:05)
[2017-01-14] MEDS: Furosemide 40 MG TABLET PO SCH (08:32)
[2017-01-14] MEDS: Aspirin Enteric Coated 81 MG Tablet PO SCH (08:33)
[2017-01-14] MEDS: Diltiazem CD (24hr) 120 MG CAPSULE PO SCH (08:33)
[2017-01-15] MEDS: Furosemide 40 MG TABLET PO SCH (09:53)
[2017-01-15] MEDS: *HR* Dabigatran 75 MG CAPSULE PO SCH (09:53)
[2017-01-15] MEDS: Diltiazem CD (24hr) 120 MG CAPSULE PO SCH (09:53)
[2017-01-15] MEDS: Aspirin Enteric Coated 81 MG Tablet PO SCH (09:53)
[2017-01-15 10:46] VITALS: BP 133/75
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
== END 2017-01-15 14:40 | disposition home or self-care (01) ==
LOC: EMEROO 14:46 → 3BNU 14:46
PROVIDERS: ADMIT Registered Nurse; ATTEND Registered Nurse